=== PATIENT | female | born 1950 | race Caucasian/White ===

== ENCOUNTER → 2016-03-19 | Day surgery (SDC) | payer BC, OTHER ==
[2016-03-14 14:46] LABS: BASO % 0.8 %; BASO ABS # 0.06 K/uL (0-0.2); COMPLETE YES; EOS % 2.7 %; HEMATOCRIT 40.2 % (37-47); IG% 0.1 %; LYMPH % 26.9 %; LYMPH ABS # 1.91 K/uL (1.2-3.4); MEAN CELL VOLUME 85.2 fL (80-100); MEAN CORPUSCULAR HEMOGLOBIN 28.6 pg (25-34); MEAN CORPUSCULAR HGB CONC 33.6 g/dl (32-36); MEAN PLATELET VOLUME 9.9 fL (7.4-10.4); NEUT % 59.5 %; PLATELET COUNT 289 K/uL (130-400); RED BLOOD COUNT 4.72 M/uL (4.2-5.4)
[2016-03-14 14:53] LABS: INR 0.9 (0.9-1.1)
[2016-03-16 12:40] VITALS: Ht 162.6 cm; Wt 69.5 kg
[~2016-03-19] VITALS: Ht 162.6 cm; Wt 69.5 kg
[~2016-03-19] MED LIST: ASCA500 PO; ASPI81TA28 PO; ATOR-22 PO; ATROPINE SULFATE 0.1 MG/ML 5ML SYR IV PRN; BIOT1CAP8 PO; BUPIVACAINE/EPINEPHRINE 0.5% MPF 1:200,000 30 ML VIAL ONE; CHOL100010 PO; CLINDAMYCIN PHOS 150 MG/ML 2 ML VIAL IV SCH; DEXAMETHASONE SOD INJ 4 MG/ML VIAL ONE; EpHEDrine SULFATE INJ 50 MG/ML AMP IV PRN; EpINEphrine INJ 1MG/ML AMP 1 MG/ML AMP ONE; FENTANYL CITRATE INJ 50 MCG/1 ML 2 ML VIAL ONE; LACTATED RINGER'S 1000ML 1,000 ML IV SCH; LIDOCAINE HCL 1% 20 ML VIAL ONE; LIDOCAINE HCL 2% 2 ML VIAL (20MG/ML) ONE; MIDAZOLAM HCL 1 MG/ML 2ML VIAL ONE; MULT-506 PO; MoRPHine SULFATE 2 MG/ML CARP IV PRN; MoRPHine SULFATE 4 MG/ML 1 ML CARP\\VIAL IV PRN; ONDANSETRON INJ 2 MG/ML 2 ML VIAL IV PRN; ONDANSETRON INJ 2 MG/ML 2 ML VIAL ONE; OXYCODONE/ACETAMINOPHEN 5-325 TAB PO PRN; PROPOFOL IV EMULSION 10 MG/ML 20 ML VIAL IV ONE
--- NOTE | 2016-03-19 07:03 | History & Physical Bridge - SC ---
H&P Re-Evaluation Bridge Note: I have examined the patient, reviewed the History & Physical and in the interval since the performance of the History & Physical I have noted the following changes of clinical significance: No changes noted
--- NOTE | 2016-03-19 08:03 | Discharge Instructions-SurgCtr ---
Discharge Instructions Visit Reason for Visit: Left Knee Meniscus Tear, Chondromalacia;Pre-Op Discharge Discharge Diagnosis / Problem: S/P L knee arthroscopy, partial medial meniscectomy, chondroplasty Discharge Goals Goal(s): Decrease discomfort, Improve function, Increase independence Medications Stopped Medications Name(s): stopped baby asa. last dose on 03/12 Activity Recommendations Activity Limitations: resume your previous activity Exercise/Sports Limitations: gradually increase as tolerated May Resume Sexual Activity: when tolerated Shower/Bathe: may shower/bathe in 3 days Driving or Machine Use: Not while on narcotics, should be walking normally without a limp Anesthesia . Post Anesthesia Instructions: If you have had General Anesthesia or IV Sedation: * Do not drive today. * Resume driving when surgeon permits. * Do not make important decisions or sign legal documents today. * Call surgeon for: 1. Temperature elevations greater than 101 degrees F. 2. Uncontrollable pain. 3. Excessive bleeding. 4. Persistent nausea and vomiting. 5. Medication intolerance (nausea, vomiting or rash). * For nausea and vomiting use only clear liquids such as: tea, soda, bouillon until nausea subsides, then gradually increase diet as tolerated. * If you have any concerns or questions, call your surgeon's office. If physician is unavailable and it is an emergency, call 911 or go to the nearest emergency room. . Instructions / Follow-Up Instructions / Follow-Up Dr. Santos in 10-15 days. PT in 2-3 days. Diet Recommendations Home Diet: resume previous diet Procedures Procedures Performed: Left Knee Arthroscopic Partial Medial Menisctomy,ExtensiveDebridement, Chondroplasty,Medial Plica Excision,Exam Under Anesthesia Pending Studies Studies pending at discharge: no Medical Emergencies . Who to Call and When: Medical Emergencies: If at any time you feel your situation is an emergency, please call 911 immediately. . Non-Emergent Contact Non-Emergency issues call your: Surgeon Call Non-Emergent contact if: temperature is above 101.5, your pain is not controlled, wound has increased drainage, wound has increased redness . . "Provider Documentation" section prepared by Madhu Santos.
--- NOTE | 2016-03-19 08:05 | [facility] Post Operative Brief Note ---
Immediate Operative Summary Operative Date Mar 19, 2016. Pre-Operative Diagnosis left knee meniscus tear/chondromalacia Post-Operative Diagnosis same synovitis,plica Procedure(s) Performed 1) Left Knee Arthroscopic Extensive Debridement, with Medial Plica Excision. 2) Chondroplasty MFC, Partial Medial Menisctomy. 3) Exam Under Anesthesia. Surgeon Dr Santos Auditing Control Clerk Surgeon(s) wen bryan PA-C Estimated Blood Loss 3ml Findings As above Fluids (cc crystalloids) 800 Specimens 0 Drains n/a Anesthesia LMA Complication(s) None Disposition Recovery Room / PACU (Stable)
--- NOTE | 2016-03-19 08:06 | [facility] Operative Report ---
Operative Report Operative Date Mar 19, 2016. Pre-Operative Diagnosis left knee meniscus tear/chondromalacia Post-Operative Diagnosis same synovitis,plica Procedure(s) Performed 1) Left Knee Arthroscopic Extensive Debridement, with Medial Plica Excision. 2) Chondroplasty MFC, Partial Medial Menisctomy. 3) Exam Under Anesthesia. Surgeon Dr Santos Hardboard Coating Machine Operator Surgeon(s) wen bryan PA-C (No fellow avail) Estimated Blood Loss 3ml Findings The Left knee was examined under anesthesia. Range of motion was 0-135. Ligamentous examination exhibited: stable Batool, posterior drawer, varus and valgus stress at 0 & 30 degrees. ARTHROSCOPIC FINDINGS: There was significant synovitis in the suprapatellar pouch and a medial plicae. 1) PATELLOFEMORAL JOINT: The articular cartilage of the Patella and Trochlea were intact. 2) GUTTERS: No loose bodies. 3) MEDIAL COMPARTMENT: The articular cartilage of the femur had Outerbridge Type II changes at 80 degrees of flexion with small flaps of articular cartilage near the notch and Tibia was intact. The medial meniscus had a degenerative complex tear involving the apex and undersurface. 4) ACL/PCL: They were both visualized and probed to be intact. 5) LATERAL COMPARTMENT: The lateral compartment was then entered in a figure-of- four position. The femoral articular cartilage was normal. The tibial articular cartilage had some diffuse softening fibulation. The lateral meniscus was normal. Fluids (cc crystalloids) 800 Specimens 0 Drains n/a Anesthesia LMA Complication(s) None Disposition Recovery Room / PACU (Stable) Implants n/a Indications This is a 65-year-old female who has clinical and MRI findings consistent with meniscus tear and chondromalacia. I recommended that a left knee arthroscopy be performed with meniscus repair vs debridement, possible chondroplasty versus microfracture. The patient understands the risks of surgery, which include but not limited to: bleeding, infection, re-operation, damage to nerves and arteries , continued knee pain, progression of OA, DVT, and a 2-5% risk of becoming worse after surgery. The patient understands all of these instructions and explanations, all of his questions have been satisfactorily addressed and the patient has elected to proceed. Informed consent was signed. Description of Procedure The patient was taken to the Operating Room and placed in the supine position after general anesthetic was administered. My initials and a multidisciplinary time-out were used to identify the left leg as the correct operative limb. Prior to the incision, 600 milligrams of intravenous Clindamycin was given. The left knee was then injected with 20cc of a 50:50 mix of 1% Lidocaine plain and 0.5% Bupivacaine with epinephrine in a sterile fashion using the superolateral portal. The left leg was then prepped and draped in a standard sterile fashion. The anterolateral, anteromedial, and superolateral portals were injected with the 50:50 mixture noted above, for a total of 2 cc, in the standard fashion. An anterolateral arthroscopic portal was established with an 11-blade. Next, the arthroscope was introduced into the knee. A diagnostic arthroscopy commenced anteromedial portal was established under direct visualization using a spinal needle followed by an 11 blade in the standard fashion. The above findings were observed during the diagnostic arthroscopy. The synovitis and anterior fat pad were debrided as they were encounter with mechanical shaver and Coolcut. The medial plicae was excised with a mechanical shaver. The articular cartilage damage was debrided back to stable margins as they were encountered with mechanical shaver. The medial meniscus tear was evaluated and found to be irreparable and was debrided back to stable margin with hand punches, and mechanical shaver. The knee was copiously irrigated. The arthroscopic instruments were then removed. The portals were closed with 3-0 Prolene in a standard fashion. The wound was dressed with Xeroform gauze, sterile gauze, ABDs, sterile Webril, and a foot to thigh Ortiz bandage. The patient was then transferred to the Recovery Room in stable condition. The sponge and needle counts were correct. Post-op Instructions: The patient will be WBAT. The patient may remove the operative dressing on Post -Op Day #2 and apply Band-Aids to the wounds. The patient may shower in 72 hours and is to wear the QUOC for 2 weeks on the operative limb. The patient is to use the pain medicine as needed and take the ASA for 2 weeks. The patient was also given a handout for home quad strengthening and seated self-assisted ROM exercises, which they may begin tomorrow. The patient was given a prescription for PT and is scheduled for an appointment later this week. The patient is to follow up with me in 10-15 days. I attest to the content of the Intraoperative Record and any orders documented therein. Any exceptions are noted below.
--- NOTE | 2016-03-19 08:11 | [facility] Operative Report ---
Operative Report Operative Date Mar 19, 2016. Pre-Operative Diagnosis left knee meniscus tear/chondromalacia Post-Operative Diagnosis same synovitis,plica Procedure(s) Performed 1) Left Knee Arthroscopic Extensive Debridement, with Medial Plica Excision. 2) Chondroplasty MFC, Partial Medial Menisctomy. 3) Exam Under Anesthesia. Surgeon Dr Santos Tower Dragline Operator Surgeon(s) wen bryan PA-C Estimated Blood Loss 3ml Findings SAME Fluids (cc crystalloids) 800 Specimens 0 Drains none Anesthesia general Complication(s) None Disposition Recovery Room / PACU Implants none Indications continued left knee pain, failed conservative management, surgery recommended, consents signed Description of Procedure taken to the OR, prepped and draped, I was present the entire case, please see Dr. Santos's op note for further detail I attest to the content of the Intraoperative Record and any orders documented therein. Any exceptions are noted below.
[2016-03-19] MEDS: FENTANYL CITRATE INJ 50 MCG/1 ML 2 ML VIAL IV PRN ×2 (08:21→08:26)
[2016-03-19 08:55] VITALS: TEMP 36.5
--- NOTE | 2016-03-19 09:02 | Anesthesia Progress Nt - [facility] ---
Anesthesia Post Op Note Date & Time Mar 19, 2016 at 09:02 Vital Signs Pain Intensity: 3 Vital Signs Past 12 Hours Date Time Temp Pulse Resp B/P Pulse Ox O2 Delivery O2 Flow Rate FiO2 03/19/16 08:45 36.6 71 16 118/65 99 Room Air 03/19/16 08:44 118/65 03/19/16 08:43 74 14 03/19/16 08:43 74 14 96 03/19/16 08:38 72 13 03/19/16 08:38 72 13 111/81 97 03/19/16 08:37 74 15 03/19/16 08:37 74 15 97 03/19/16 08:34 121/77 03/19/16 08:32 73 13 03/19/16 08:32 75 13 100 03/19/16 08:28 131/83 03/19/16 08:27 73 11 100 03/19/16 08:27 74 11 03/19/16 08:24 127/79 03/19/16 08:22 72 13 03/19/16 08:22 71 13 100 03/19/16 08:19 131/79 03/19/16 08:17 78 19 100 03/19/16 08:17 78 19 03/19/16 08:13 129/84 03/19/16 08:12 37.1 81 16 136/88 99 Diffusion Mask 6 03/19/16 08:12 77 13 03/19/16 08:12 76 13 99 03/19/16 06:33 36.8 66 18 134/76 97 Room Air Notes Mental Status: alert / awake / arousable, participated in evaluation Pt Amnestic to Procedure: Yes Nausea / Vomiting: adequately controlled Pain: adequately controlled Airway Patency, RR, SpO2: stable & adequate BP & HR: stable & adequate Hydration State: stable & adequate Anesthetic Complications: no major complications apparent
[2016-03-19 09:36] VITALS: BP 122/76; O2SAT 98
--- NOTE | 2016-03-20 15:08 | Progress Note ---
Progress Note I followed up with a phone call to see how she was doing today and she said her lip was still swollen. She has not applied ice and I urged her to do so three times a day. She said that she would. She also stated the the area was numb. I reassured her that the numbness would resolve as well as the swelling, but that the swelling would go away a lot faster if she uses ice. The woman was very pleasant to speak with and did not seem angry.
== END | disposition home or self-care (01) ==
LOC: X.SURG 06:20
PROVIDERS: ATTEND Orthopaedic Surgery Sports Medicine
DX: M23.204 Derangement of unspecified medial meniscus due to old tear or injury, left knee (principal); M94.262 Chondromalacia, left knee; M65.862 Other synovitis and tenosynovitis, left lower leg; M67.52 Plica syndrome, left knee; E78.5 Hyperlipidemia, unspecified; Z88.1 Allergy status to other antibiotic agents; Z88.0 Allergy status to penicillin; Z98.890 Other specified postprocedural states; Z98.49 Cataract extraction status, unspecified eye; Z79.82 Long term (current) use of aspirin; Z68.26 Body mass index [BMI] 26.0-26.9, adult

== ENCOUNTER → 2016-03-21 | Outpatient (CLI) | payer BC ==
[~2016-03-21] MED LIST changes: -ATROPINE SULFATE 0.1 MG/ML 5ML SYR IV PRN; -BUPIVACAINE/EPINEPHRINE 0.5% MPF 1:200,000 30 ML VIAL ONE; -CLINDAMYCIN PHOS 150 MG/ML 2 ML VIAL IV SCH; -DEXAMETHASONE SOD INJ 4 MG/ML VIAL ONE; -EpHEDrine SULFATE INJ 50 MG/ML AMP IV PRN; -EpINEphrine INJ 1MG/ML AMP 1 MG/ML AMP ONE; -FENTANYL CITRATE INJ 50 MCG/1 ML 2 ML VIAL ONE; -LACTATED RINGER'S 1000ML 1,000 ML IV SCH; -LIDOCAINE HCL 1% 20 ML VIAL ONE; -LIDOCAINE HCL 2% 2 ML VIAL (20MG/ML) ONE; -MIDAZOLAM HCL 1 MG/ML 2ML VIAL ONE; -MoRPHine SULFATE 2 MG/ML CARP IV PRN; -MoRPHine SULFATE 4 MG/ML 1 ML CARP\\VIAL IV PRN; -ONDANSETRON INJ 2 MG/ML 2 ML VIAL IV PRN; -ONDANSETRON INJ 2 MG/ML 2 ML VIAL ONE; -OXYCODONE/ACETAMINOPHEN 5-325 TAB PO PRN; -PROPOFOL IV EMULSION 10 MG/ML 20 ML VIAL IV ONE
[2016-03-21 11:14] LABS: URINE APPEARANCE CLEAR (CLEAR); URINE BILIRUBIN NEG (NEG); URINE COLOR YELLOW; URINE EPITHELIAL CELL AUTO 0-5 /lpf (0-5); URINE NITRITE NEG (NEG); URINE PH 8.5 (4.5-7.5); URINE SPECIFIC GRAVITY 1.002 (1.000-1.030); UROBILINOGEN NEG (NEG)
[2016-03-21 11:18] LABS: MANUAL MICROSCOPIC REQUIRED? NO; REVIEW REQ? NO
[2016-03-21 11:23] LABS: ESTIMATED AVERAGE GLUCOSE 126 mg/dl; HA1C FLAG Normal (Normal)
[2016-03-21 11:25] LABS: AST/SGOT 17 U/L (15-37); BLOOD UREA NITROGEN 11 mg/dl (7-18); BUN/CREATININE RATIO 17.6 (10-20); CALCIUM 9.3 mg/dl (8.5-10.1); CARBON DIOXIDE 30 mmol/L (21-32); CHLORIDE 107 mmol/L (98-107); CREATININE 0.63 mg/dl (0.60-1.20); GLUCOSE 99 mg/dl (70-99); POTASSIUM 4.1 mmol/L (3.5-5.1); SODIUM 144 mmol/L (136-145)
[2016-03-21 11:35] LABS: ALT/SGPT 35 U/L (12-78); CHOLESTEROL 189 mg/dl (0-200); CHOLESTEROL/HDL RATIO 2.1; HDL CHOLESTEROL 91 mg/dl; LDL CHOLESTEROL CALCULATED 69 mg/dl; THYROID STIMULATING HORMONE 0.572 uIu/ml (0.300-4.500); TRIGLYCERIDES 143 mg/dl (0-150); VERY LOW DENSITY LIPOPROT CALC 29 mg/dl
== END | disposition home or self-care (01) ==
LOC: C.LAB1850 09:59
PROVIDERS: ATTEND Internal Medicine
DX: M19.90 Unspecified osteoarthritis, unspecified site (principal)

== ENCOUNTER → 2016-06-04 | Outpatient (CLI) | payer BC ==
--- NOTE | 2016-06-04 13:27 | DIAGNOSTIC IMAGING REPORT ---
SINUSES MIN 3 VIEWS ROUTINE CLINICAL HISTORY: J32.9 Chronic [id number] sinusitis COMPARISON STUDY: None FINDINGS: All major sinuses are clear. No significant mucosal thickening. IMPRESSION: Normal study Electronically signed by: Matthew Rossi M.D. 06/04/2016 1:26 PM Dictated Date/Time: 06/04/2016 1:25 PM
== END | disposition home or self-care (01) ==
LOC: C.RAD1850 12:58
PROVIDERS: ATTEND Internal Medicine
DX: J32.9 Chronic sinusitis, unspecified (principal)

== ENCOUNTER → 2016-08-31 | Outpatient (CLI) | payer BC | END | disposition home or self-care (01) | LOC: C.PAPS 14:22 | PROVIDERS: ATTEND Obstetrics & Gynecology | DX: Z12.4 Encounter for screening for malignant neoplasm of cervix (principal) ==

== ENCOUNTER → 2016-08-31 | Outpatient (CLI) | payer BC ==
--- NOTE | 2016-08-31 16:38 | MAMMOGRAPHY REPORT ---
BILATERAL DIGITAL SCREENING MAMMOGRAM TOMOSYNTHESIS WITH CAD: 08/31/2016 CLINICAL HISTORY: Routine screening. The patient reported to the technologist that she had some righ t upper outer quadrant tenderness last week. TECHNIQUE: Breast tomosynthesis in addition to standard 2D mammography was performed. Current study was also evaluated with a Computer Aided Detection (CAD) system. COMPARISON: Comparison is made to exams dated: 08/30/2015 mammogram, 08/27/2014 mammogram, 08/26/2013 m ammogram, 08/25/2012 mammogram, 08/24/2011 mammogram, and 08/21/2010 mammogram - [facility] ter. BREAST COMPOSITION: The tissue of both breasts is heterogeneously dense, which may obscure small mas ses. FINDINGS: No suspicious masses, calcifications, or areas of architectural distortion are noted in ei ther breast. There has been no significant interval change compared to prior exams. IMPRESSION: ACR BI-RADS CATEGORY 1: NEGATIVE There is no mammographic evidence of malignancy. A 1 year screening mammogram is recommended. Also r ecommend clinical follow-up for right breast tenderness. The patient will receive written notificati on of the results. Approximately 10% of breast cancers are not detected with mammography. A negative mammographic report should not delay biopsy if a clinically suggestive mass is present. Kerry Drummond M.D. /:08/31/2016 15:30:43 Bomb Loader: Karoline SAGE(Ghassan)(M), [facility] letter sent: Normal 1/2 BI-RADS Code: ACR BI-RADS Category 1: Negative
== END | disposition home or self-care (01) ==
LOC: C.MAMM 10:14
PROVIDERS: ATTEND Obstetrics & Gynecology
DX: Z12.31 Encounter for screening mammogram for malignant neoplasm of breast (principal); Z12.4 Encounter for screening for malignant neoplasm of cervix

== ENCOUNTER → 2016-09-19 | Outpatient (CLI) | payer BC ==
[2016-09-19 14:39] LABS: BASO % 0.5 %; BASO ABS # 0.03 K/uL (0-0.2); COMPLETE YES; EOS % 3.4 %; HEMATOCRIT 42.8 % (37-47); IG% 0.2 %; LYMPH % 30.9 %; MEAN CELL VOLUME 85.1 fL (80-100); MEAN CORPUSCULAR HEMOGLOBIN 27.2 pg (25-34); MEAN PLATELET VOLUME 9.7 fL (7.4-10.4); MONO % 9.4 %; NEUT % 55.6 %; PLATELET COUNT 308 K/uL (130-400); RED BLOOD COUNT 5.03 M/uL (4.2-5.4); WHITE BLOOD COUNT 6.15 K/uL (4.8-10.8)
[2016-09-19 14:49] LABS: ALT/SGPT 33 U/L (12-78); AST/SGOT 19 U/L (15-37); BLOOD UREA NITROGEN 15 mg/dl (7-18); BUN/CREATININE RATIO 21.1 (10-20); CALCIUM 9.3 mg/dl (8.5-10.1); CARBON DIOXIDE 28 mmol/L (21-32); CHLORIDE 109 mmol/L (98-107); CREATININE 0.69 mg/dl (0.60-1.20); ESTIMATED AVERAGE GLUCOSE 131 mg/dl; GLUCOSE 98 mg/dl (70-99); HA1C FLAG Normal (Normal); POTASSIUM 3.9 mmol/L (3.5-5.1); SODIUM 141 mmol/L (136-145)
[2016-09-19 15:02] LABS: CHOLESTEROL 192 mg/dl (0-200); CHOLESTEROL/HDL RATIO 2.3; HDL CHOLESTEROL 84 mg/dl; LDL CHOLESTEROL CALCULATED 89 mg/dl; TRIGLYCERIDES 93 mg/dl (0-150); VERY LOW DENSITY LIPOPROT CALC 19 mg/dl
--- NOTE | 2016-09-25 10:01 | CODING QUERY MEDICAL NECESSITY ---
CQSUPPORTING DIAGNOSIS NEEDED A supporting diagnosis is required for the test/procedure performed on this patient in order for us to be reimbursed by the patient's insurance. Please provide a supporting diagnosis for the following test/procedure listed below next to the test name along with your signature. *If there is no additional diagnosis for this patient that would support the following test/procedure please document that below next to the test/procedure. Test(s)/Procedure(s) that require a supporting diagnosis: DOS 09/19/16 VITAMIN D TEST GLYCATED HEMOGLOBIN TEST Provider Signature: Date: Thank you Neetu Mahan [facility] Information Management Once completed, please kindly fax back to [phone] For questions please call [phone]
== END | disposition home or self-care (01) ==
LOC: C.LAB1850 12:34
PROVIDERS: ATTEND Internal Medicine
DX: E78.00 Pure hypercholesterolemia, unspecified (principal); Z13.21 Encounter for screening for nutritional disorder; R73.9 Hyperglycemia, unspecified

== ENCOUNTER → 2016-10-22 | Outpatient (CLI) | payer BC | END | disposition home or self-care (01) | LOC: C.MAMM 11:01 | PROVIDERS: ATTEND Internal Medicine | DX: M81.0 Age-related osteoporosis without current pathological fracture (principal) ==

== ENCOUNTER → 2017-03-14 | Outpatient (CLI) | payer BC | END | disposition home or self-care (01) | LOC: C.RDSM 11:03 | PROVIDERS: ATTEND Orthopaedic Surgery Sports Medicine | DX: M25.561 Pain in right knee (principal) ==

== ENCOUNTER → 2017-03-21 | Outpatient (CLI) | payer BC ==
[2017-03-21 14:12] LABS: BASO % 0.5 %; BASO ABS # 0.03 K/uL (0-0.2); EOS % 1.5 %; HEMATOCRIT 37.6 % (37-47); HEMOGLOBIN 12.5 g/dL (12.0-16.0); IG# 0.01 K/uL (0.00-0.02); LYMPH % 19.3 %; LYMPH ABS # 1.26 K/uL (1.2-3.4); MEAN CELL VOLUME 86.4 fL (80-100); MEAN CORPUSCULAR HEMOGLOBIN 28.7 pg (25-34); MEAN CORPUSCULAR HGB CONC 33.2 g/dl (32-36); MEAN PLATELET VOLUME 9.8 fL (7.4-10.4); MONO % 15.2 %; MONO ABS # 0.99 K/uL (0.11-0.59); NEUT % 63.3 %; NEUT ABS # 4.14 K/uL (1.4-6.5); PLATELET COUNT 247 K/uL (130-400); RED CELL DISTRIBUTION WIDTH CV 13.7 % (11.5-14.5); RED CELL DISTRIBUTION WIDTH SD 43.9 fL (36.4-46.3); WHITE BLOOD COUNT 6.53 K/uL (4.8-10.8)
[2017-03-21 14:35] LABS: HEMOGLOBIN A1C 6.1 % (4.5-5.6)
[2017-03-21 17:41] LABS: ALT/SGPT 38 U/L (12-78); AST/SGOT 25 U/L (15-37); BLOOD UREA NITROGEN 10 mg/dl (7-18); CALCIUM 8.9 mg/dl (8.5-10.1); CARBON DIOXIDE 28 mmol/L (21-32); CHOLESTEROL 179 mg/dl (0-200); CREATININE 0.59 mg/dl (0.60-1.20); GLUCOSE 87 mg/dl (70-99); POTASSIUM 3.9 mmol/L (3.5-5.1); SODIUM 133 mmol/L (136-145)
[2017-03-21 17:47] LABS: LDL CHOLESTEROL CALCULATED 85 mg/dl
--- NOTE | 2017-03-26 11:35 | CODING QUERY MEDICAL NECESSITY ---
CQSUPPORTING DIAGNOSIS NEEDED A supporting diagnosis is required for the test/procedure performed on this patient in order for us to be reimbursed by the patient's insurance. Please provide a supporting diagnosis for the following test/procedure listed below next to the test name along with your signature. *If there is no additional diagnosis for this patient that would support the following test/procedure please document that below next to the test/procedure. Test(s)/Procedure(s) that require a supporting diagnosis: DOS 03/21/17 GLYCATED HEMOGLOBIN TEST Provider Signature: Date: Thank you Neetu Mahan Health Information Management Once completed, please kindly fax back to [phone] For questions please call [phone]
== END | disposition home or self-care (01) ==
LOC: C.LAB1850 13:03
PROVIDERS: ATTEND Internal Medicine
DX: E78.00 Pure hypercholesterolemia, unspecified (principal); R73.9 Hyperglycemia, unspecified

== ENCOUNTER → 2017-05-16 | Outpatient (CLI) | payer BC ==
--- NOTE | 2017-05-16 12:31 | DIAGNOSTIC IMAGING REPORT ---
CHEST 2 VIEWS ROUTINE CLINICAL HISTORY: CHEST PAIN dyspnea COMPARISON STUDY: No previous studies for comparison. FINDINGS: The bones soft tissues and hemidiaphragms are normal. The cardiomediastinal silhouette is normal. The lungs are clear. The pulmonary vasculature is normal. IMPRESSION: Negative chest. The above report was generated using voice recognition software. It may contain grammatical, syntax or spelling errors. Electronically signed by: Matthew Rossi M.D. 05/16/2017 12:29 PM Dictated Date/Time: 05/16/2017 12:29 PM
== END | disposition home or self-care (01) ==
LOC: C.RAD1850 12:13
PROVIDERS: ATTEND Physician Assistant Medical
DX: R07.9 Chest pain, unspecified (principal)

== ENCOUNTER → 2017-05-16 | Outpatient (CLI) | payer BC ==
--- NOTE | 2017-05-16 15:19 | MAMMOGRAPHY REPORT ---
UNILATERAL RIGHT DIGITAL DIAGNOSTIC MAMMOGRAM TOMOSYNTHESIS WITH CAD AND TARGETED RIGHT ULTRASOUND: CLINICAL HISTORY: The patient reports intermittent right medial breast pain for some time. Over the last 2 months she had episodes in which the pain radiated to involve the whole breast. She denies an y palpable lumps or other complaints. TECHNIQUE: Breast tomosynthesis in addition to standard 2D mammography was performed. Current study was also evaluated with a Computer Aided Detection (CAD) system. Right CC and MLO 2-D and tomosynthe sis images were obtained. COMPARISON: Comparison is made to exams dated: 08/31/2016 mammogram, 08/30/2015 mammogram, 08/27/2014 m ammogram, 08/26/2013 mammogram, 08/25/2012 mammogram, and 08/24/2011 mammogram - [facility]. BREAST COMPOSITION: The tissue of the right breast is heterogeneously dense, which may obscure small masses. FINDINGS: A square marker diaz the site of pain reported by the patient in the right upper inner sha drant. There are no suspicious masses, calcifications, or areas of architectural distortion noted in the right breast mammographically. There has been no significant interval change compared to prior exams. Targeted ultrasound was performed of the area of pain pointed out by the patient, involving the right far medial breast in the parasternal region. Sonographically normal tissue is seen in this region, without evidence of a mass or other suspicious sonographic abnormality. IMPRESSION: ACR BI-RADS CATEGORY 2: BENIGN, TARGETED ULTRASOUND ACR BI-RADS CATEGORY 2: BENIGN No suspicious mammographic or sonographic abnormality to explain right breast pain. There is no mamm ographic or targeted sonographic evidence of malignancy. Recommend clinical follow-up for right farzaneh st pain, and recommend routine bilateral screening mammograms which are due August 2017. The patient has been verbally notified of the results. Approximately 10% of breast cancers are not detected with mammography. A negative mammographic report should not delay biopsy if a clinically suggestive mass is present. Kerry Drummond M.D. /:05/16/2017 08:38:37 Chief Information Security Officer: Candaec Alves, [facility] letter sent: Normal 1/2 BI-RADS Code: ACR BI-RADS Category 2: Benign Ultrasound BI-RADS: ACR BI-RADS Category 2: Benign
== END | disposition home or self-care (01) ==
LOC: C.MAMM 08:19
PROVIDERS: ATTEND Obstetrics & Gynecology
DX: R92.8 Other abnormal and inconclusive findings on diagnostic imaging of breast (principal); N64.4 Mastodynia

== ENCOUNTER 2022-09-20 07:56 | Observation (INO) ==
--- NOTE | 2022-08-16 14:06 | PAT Medication Instructions ---
Medication Instructions Date of Service August 16, 2022 Home Medications Medication Instructions Recorded diazepam 2 mg tablet 1 mg PO BID PRN anxiety #10 tabs 07/27/22 biotin 1 mg capsule 1 mg PO HS multivitamin 1 cap PO HS ascorbic acid (vitamin C) 500 mg tablet 1 gm PO HS cholecalciferol (vitamin D3) 25 mcg (1,000 unit) capsule (Vitamin D3) 2,000 units PO HS cyanocobalamin (vitamin B-12) 2,000 mcg tablet 2,000 mcg PO HS cyclosporine 0.05 % eye drops in a dropperette (Restasis) 1 drp OPB BID famotidine 20 mg tablet (Pepcid) 20 mg PO DAILY PRN Acid Reflux doxycycline hyclate 100 mg capsule 100 mg PO BID PRN rosacea diazepam 2 mg tablet 1 mg PO BID PRN anxiety atorvastatin 20 mg tablet (Lipitor) 20 mg PO HS ibuprofen 200 mg tablet (Advil) 400 mg PO Q6H PRN Pain ASK your surgeon for instructions ibuprofen 200 mg tablet (Advil) 400 mg PO Q6H PRN Pain STOP taking 2 weeks before surgery (or as soon as possible if surgery is within 2 weeks) biotin 1 mg capsule 1 mg PO HS Take morning of surgery With a small sip of water, OTHERWISE NOTHING TO EAT OR DRINK AFTER MIDNIGHT: cyclosporine 0.05 % eye drops in a dropperette (Restasis) 1 drp OPB BID famotidine 20 mg tablet (Pepcid) 20 mg PO DAILY PRN Acid Reflux (if needed) doxycycline hyclate 100 mg capsule 100 mg PO BID PRN rosacea (if needed) diazepam 2 mg tablet 1 mg PO BID PRN anxiety (if needed) Take evening before surgery multivitamin 1 cap PO HS ascorbic acid (vitamin C) 500 mg tablet 1 gm PO HS cholecalciferol (vitamin D3) 25 mcg (1,000 unit) capsule (Vitamin D3) 2,000 un its PO HS cyanocobalamin (vitamin B-12) 2,000 mcg tablet 2,000 mcg PO HS cyclosporine 0.05 % eye drops in a dropperette (Restasis) 1 drp OPB BID famotidine 20 mg tablet (Pepcid) 20 mg PO DAILY PRN Acid Reflux (if needed) doxycycline hyclate 100 mg capsule 100 mg PO BID PRN rosacea (if needed) diazepam 2 mg tablet 1 mg PO BID PRN anxiety (if needed) atorvastatin 20 mg tablet (Lipitor) 20 mg PO HS Other Notes If you have any questions please call us at [phone] or [phone] or [phone] or [phone]
--- NOTE | 2022-08-24 14:38 | Anesthesiology Consultation ---
Date of Service August 24, 2022 Assessment & Plan (1) Encounter for pre-operative examination: - COVID screening: Per assessment on 08/24: No known COVID-19 positive contacts or current COVID-19 related symptoms. Travel screen negative. Patient vaccinated. At surgeon discretion if preop Covid testing being done. - Outpatient joint assessment: Pt currently scheduled for inpatient pathway. If surgeon requests review for outpatient joint pathway, patient is an acceptable candidate for outpatient joint program from anesthesia standpoint pending surgeon's office assessment that patient is motivated, has good support and completes Same Day Joint Program preop requirements. - S/P Colonoscopy (05/16/22): MAC at [facility] - Patient acceptable risk pending surgeon-ordered PCP preop evaluation ([facility], appt 08/27). Chart Review Chart Review: Patient seen in Pre Admission Testing Teaching & Discussion Pre-Anesthesia Teaching/Discussion Notes: Instructed NPO after midnight before surgery,except medications with 15 cc of water. Medication instructions provided according to the PAT guidelines. History Surgery Operation Date: 09/20/22 08:15 Proposed Procedures p Left Total Hip Arthroplasty - Haider Mahajan MD Height/Weight Height: 5 ft 3 in Weight: 75.7 kg Allergies Allergy/AdvReac Type Severity Reaction Status Date / Time erythromycin base Allergy Intermediate Hives Verified 08/23/22 15:48 omeprazole [From Prilosec] AdvReac Intermediate Vomiting Verified 08/16/22 11:21 penicillin G AdvReac Mild ? GI Verified 08/23/22 15:48 symptoms Medications Home Medications Medication Instructions Recorded Confirmed Last Taken biotin 1 mg capsule 1 mg PO HS 06/09/18 08/16/22 05/14/22 multivitamin 1 cap PO HS 06/09/18 08/16/22 05/14/22 ascorbic acid (vitamin C) 500 mg 1 gm PO HS 01/05/19 08/16/22 05/14/22 tablet cholecalciferol (vitamin D3) 25 2,000 units PO HS 09/23/19 08/16/22 05/14/22 mcg (1,000 unit) capsule (Vitamin D3) cyanocobalamin (vitamin B-12) 2,000 mcg PO HS 09/23/19 08/16/22 05/14/22 2,000 mcg tablet cyclosporine 0.05 % eye drops in a 1 drp OPB BID 09/24/19 08/16/22 05/16/22 dropperette (Restasis) famotidine 20 mg tablet (Pepcid) 20 mg PO DAILY PRN Acid Reflux 02/28/22 08/16/22 Unknown doxycycline hyclate 100 mg capsule 100 mg PO BID PRN rosacea 05/09/22 08/16/22 Unknown diazepam 2 mg tablet 1 mg PO BID PRN anxiety #10 tabs 07/27/22 08/16/22 Unknown atorvastatin 20 mg tablet (Lipitor) 20 mg PO HS 08/16/22 08/16/22 Unknown ibuprofen 200 mg tablet (Advil) 400 mg PO Q6H PRN Pain 08/16/22 08/16/22 Unknown Past Medical History Medical History Anaplasmosis Chronic low back pain without sciatica Generalized anxiety disorder GERD without esophagitis History of basal cell cancer Hypercholesterolemia IBS (irritable bowel syndrome) Osteoporosis Prediabetes Rosacea Exercise / Class Metabolic Activity II 4-5 Yardwork/Stairs/Walk up hill (one FS (no CP, no SOB)) Past Family History Family History Mother Arthritis Father Arthritis Diabetes Prostate cancer Brother FH: CABG (coronary artery bypass surgery) Coronary heart disease Diabetes Prostate cancer Vasomotor rhinitis Other Myocardial infarction Denies family history of Ovarian cancer Breast cancer Colorectal cancer Past Surgical History Surgical History History of arthroscopy History of cataract surgery History of colonoscopy History of dilatation and curettage History of esophagogastroduodenoscopy (EGD) History of laparoscopy History of tooth extraction Status post epidural steroid injection Past Anesthesia History No Hx of Anesthesia Complications and No Family Hx of Anesthesia Complications History of PONV No Hx of PONV and Hx of Motion Sickness Social History Smoking Status: Never smoker Do You Dip or Chew Tobacco: No Hx Alcohol Use: Yes Alcohol type: wine alcohol intake frequency: a few times a month Hx Substance Use: No substance use type: does not use Review of Systems Non-allergic rhinitus- occasional post-nasal drip/cough, unchanged. Patient denies chest pain, shortness of breath, dyspnea on exertion, fever, chills, wheezing, palpitations. Physical Exam Vital Signs VITALS BP 137/72 P 75 TEMP 98.6 SP02 99%RA RESP 16 PHYSICAL Full cervical extension range of motion. Full TMJ range of motion. TMD 3 finger breaths Mallampati Score 1 Dentition: intact, right lower side implant Lungs: clear throughout to auscultation Cardiac: regular rate and rhythm, no murmurs noted Spine: normal Carotid arteries: negative bruit Extremities: no LE edema Short neck Lab Results Anesthesia Preop Results Results Anesthesia Widget: WBC 7.99 K/ul (4.8-10.8) 08/24/22 Hgb 13.3 g/dl (12.0-16.0) 08/24/22 Hct 40.0 % (37.0-47.0) 08/24/22 Plt 315 K/uL (130-400) 08/24/22 Na 139 mmol/L (136-145) 08/24/22 K 4.8 mmol/L (3.5-5.1) 08/24/22 Cl 104 mmol/L (98-107) 08/24/22 CO2 29 mmol/L (21-32) 08/24/22 BUN 9 mg/dl (6-23) 08/24/22 Creat 0.49 mg/dl (0.6-1.2) L 08/24/22 Glucose Level 100 mg/dl (70-99(Fasting)) H 08/24/22 PT 10.5 Seconds (9.0-12.0) 08/24/22 PTT 25.8 Seconds (21.0-31.0) 08/24/22 INR 1.0 (0.9-1.1) 08/24/22 Urine Color Yellow 08/24/22 Urine Appearance Clear (Clear) 08/24/22 Urine pH 6.5 (4.5-7.5) 08/24/22 Urine Specific [place] 1.009 (1.000-1.030) 08/24/22 Urine Protein Negative (Negative) 08/24/22 Urine Glucose (UA) Negative (Negative) 08/24/22 Urine Ketones Negative (Negative) 08/24/22 Urine Blood Negative (Negative) 08/24/22 Urine Nitrite Negative (Negative) 08/24/22 Urine Bilirubin Negative (Negative) 08/24/22 Urine Urobilinogen Negative (Negative) 08/24/22 Urine Leukocyte Esterase Trace (Negative) H 08/24/22 Urine WBC (Auto) 1-5 /hpf (0-5) 08/24/22 Urine RBC (Auto) 0-4 /hpf (0-4) 08/24/22 Urine Hyaline Casts (Auto) 0 /lpf (0-5) 08/24/22 Urine Epithelial Cells (Auto) 5-10 /lpf (0-5) H 08/24/22 Urine Bacteria (Auto) Negative (Negative) 08/24/22 Blood Type A Positive 08/24/22 Antibody Screen NEGATIVE 08/24/22 Testing Electrocardiogram Date: 04/16/22 SR at 71bpm. "Normal ECG" COVID-19 Risk Screen Screening Information COVID-19 Screen Date: 08/24/22 Exposure 21 Days Family/Household +COVID Last 21 Days: No Exposure 10 Days Any COVID Exposure Last 10 Days: No Symptoms Last 10 Days Experienced COVID Sx Last 10 Days: No + COVID 0-90 Days COVID + in Last 0-90 Days: No
--- NOTE | 2022-08-27 09:04 | History & Physical Report ---
Date of Service August 27, 2022 Assessment & Plan (1) Osteoarthritis of left hip: Plan: PRE-OP Diagnosis: Left hip osteoarthritis Planned Procedure: Left total hip arthroplasty Plan: Patient is scheduled to undergo this procedure at the [facility] with a 23-hour observation admission with Dr. Mahajan on September. Risks and complications of the procedure such as: Infection, bleeding, pain, scarring, nerve blood vessel damage, weakness, wound problems, stiffness, incomplete relief of symptoms, hardware failure, hardware loosening, wear, fracture, tendon or ligament injury, dislocation, leg length inequality, blood clots, Embolism, heart attack, stroke and were explained to the patient at her visit today. Informed consent to perform the procedure was obtained. Patient also understands risks of proceeding with surgical intervention during the COVID-19 pandemic. Currently she is asymptomatic and has not been in contact with anyone positive for the virus recently. Patient has an appointment to meet with anesthesia later this afternoon and while there will obtain CBC with differential, complete metabolic panel, PT/INR, blood type and screen, urinalysis, urine culture and sensitivity, EKG, and a nasal culture for MRSA. Patient will also need preoperative medical clearance from their primary care provider Zelda Cedeño PA-C. Patient states that she plans on doing in-home physical therapy for the first 1 to 2 weeks postoperatively with [facility]. Patient states that she will most likely elect to do outpatient physical therapy at somewhere near her home. Patient will need a walker, raised toilet seat, shower chair and a hip kit. During today's visit we reviewed the total hip packet as well as precautions. We discussed discharge planning from the hospital. I provided paperwork to obtain a handicap placard for their vehicle. We discussed lectures offered by [facility] in regards to joint replacement surgery via Zoom. I advised the patient that upon discharge from hospital we will prescribe a narcotic pain medication and anti-inflammatory. Patient will also be on an 81 mg aspirin twice daily for blood clot prevention. Patient will be scheduled for 2-week postoperative follow-up visit with Raven Morel on October 03 at 1 PM. At that visit we will Provide the patient with an order for outpatient physical therapy and rehab protocol. Patient verbalizes understanding of all information provided during today's visit. She thanks for the care that she received. If she has questions or concerns that should arise prior to her surgery, she will contact clinic. This chart was completed utilizing [employer] voice recognition software. Grammatical errors, random word insertions, pronoun errors, and in complete sentences are an occasional consequence of the system. Any questions or concerns about the content, text, or information contained within the body of this dictation should be addressed directly to the physician for clarification. History of Present Illness Chief Complaint: Chief Complaint: Left hip pain Primary Care Provider: Kamran Lamb MD History of Present Illness (including history relevant to procedure): This 71-year-old female presents to the clinic today for her preoperative history and physical. Patient states that she has had persistent left hip pain localized to the groin area since receiving her second COVID vaccine about 2 years ago. Patient states that the pain is so debilitating that she is not able to walk her dog. She states that she has tried intra-articular hip corticosteroid injections, had a troches bursa injection ended therapy without any relief of her symptoms. She is electing to proceed with surgical intervention at this time. Review Of Systems: A 12 point review of systems is performed and is unremarkable except for those things stated in the HPI and past medical history. Past Medical History: Problems: Hallux rigidus, right foot Lumbar spinal stenosis Left lumbar radiculopathy Hip bursitis, left Sacroiliitis Intertrigo History of basal cell carcinoma Seborrheic keratoses Rash Osteoarthritis of left hip ROSACEA Rosacea Multiple nevi Changing skin lesion Brachioradial pruritus Notalgia paresthetica Contact dermatitis Right foot pain Actinic keratosis Digital mucous cyst S/P orthopedic surgery, follow-up exam Meniscus tear Left knee pain Closed fracture of 5th metacarpal Pruritus Milia Hx of skin malignancy Eczema Acute cystitis Weight monitoring BCC (basal cell carcinoma of skin) Hyperlipidemia Osteopenia Family history of skin cancer Procedure History Procedure Procedure Date Comments Procedure - laser tx on face Colonoscopy normal Shave biopsy and cauterization of skin 12/21/2020 - Shave with cautery - Left nose Shave biopsy and cauterization of skin 12/16/2019 Punch biopsy of skin 01/30/2018 Knee meniscus 03/19/2016 Shave biopsy of skin 11/04/2012 Cataracts, bilateral 08/29/2012 Knee meniscus 2004 Allergies and Sensitivities: penicillins(Stomach upset) erythromycin(Rash) Current Home Meds: (Last Updated 08/24 13:20) ascorbic acid (Vitamin C 500 mg oral tablet) 500 mg PO Daily atorvastatin (Lipitor 20 mg oral tablet) 20 mg PO Daily biotin (biotin 5 mg oral capsule) 1,000 mg PO Daily cholecalciferol (Vitamin D3 1000 intl units oral capsule) 1,000 Int_Unit PO Daily chondroitin-glucosamine (Cosamin DS 500 mg-400 mg oral tablet) 1 tab PO Daily clobetasol topical (clobetasol 0.05% topical cream) 1 appl topical bid To rash BID for 2 weeks cycloSPORINE ophthalmic (Restasis 0.05% ophthalmic emulsion) 180 each Responsible Provider: MARY LOU HERRERA 06/13 10:56 doxycycline (doxycycline monohydrate 100 mg oral tablet) 30 each, TAKE 1 TABLET BY MOUTH TWICE DAILY NEEDED FOR ROSACEA FLARES Responsible Provider: CELIA MEJIA 06/13 10:55 doxycycline (doxycycline hyclate 100 mg oral capsule) 10 each, TAKE 1 CAPSULE BY MOUTH TWICE DAILY FOR 5 DAYS Responsible Provider: KAMRAN LAMB 07/16 11:30 ivermectin topical (Soolantra 1% topical cream) To face daily multivitamin 1 tab PO Daily predniSONE (predniSONE 10 mg oral tablet) 60mg PO x 1 day, then 50mg PO x1 day, then 40mg PO x 1 day, then 30mg PO x1 day, then 20mg PO x 1 day, then 10mg PO x 1 day then stop tretinoin topical (tretinoin 0.025% topical cream) 1 appl topical qhs triamcinolone topical (triamcinolone 0.1% topical cream) 1 appl topical bid To itchy forearms BID as needed. valACYclovir (Valtrex 1 g oral tablet) 1 g PO q12h 2 grams once and repeat in 12 hours at onset of cold sore symptomos, then stop. Initial Wt: 08/24 75.6 kg 166 lb Allergies Allergy/AdvReac Type Severity Reaction Status Date / Time erythromycin base Allergy Intermediate Hives Verified 08/23/22 15:48 omeprazole [From Prilosec] AdvReac Intermediate Vomiting Verified 08/16/22 11:21 penicillin G AdvReac Mild ? GI Verified 08/23/22 15:48 symptoms Home Medications Medication Instructions Recorded Confirmed Type biotin 1 mg capsule 1 mg PO HS 06/09/18 08/16/22 History multivitamin 1 cap PO HS 06/09/18 08/16/22 History ascorbic acid (vitamin C) 500 mg 1 gm PO HS 01/05/19 08/16/22 History tablet cholecalciferol (vitamin D3) 25 2,000 units PO HS 09/23/19 08/16/22 History mcg (1,000 unit) capsule (Vitamin D3) cyanocobalamin (vitamin B-12) 2,000 mcg PO HS 09/23/19 08/16/22 History 2,000 mcg tablet cyclosporine 0.05 % eye drops in a 1 drp OPB BID 09/24/19 08/16/22 History dropperette (Restasis) famotidine 20 mg tablet (Pepcid) 20 mg PO DAILY PRN Acid Reflux 02/28/22 08/16/22 History doxycycline hyclate 100 mg capsule 100 mg PO BID PRN rosacea 05/09/22 08/16/22 History diazepam 2 mg tablet 1 mg PO BID PRN anxiety #10 tabs 07/27/22 08/16/22 Rx atorvastatin 20 mg tablet (Lipitor) 20 mg PO HS 08/16/22 08/16/22 History ibuprofen 200 mg tablet (Advil) 400 mg PO Q6H PRN Pain 08/16/22 08/16/22 History Past Med/Surg History Medical History 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 Chronic low back pain without sciatica Generalized anxiety disorder GERD without esophagitis History of basal cell cancer Hypercholesterolemia IBS (irritable bowel syndrome) Osteoporosis Prediabetes Per records, patient denies Rosacea Surgical History History of arthroscopy R/L meniscus repair History of cataract surgery R/L (+ subsequent "laser") History of colonoscopy Colonoscopy (05/16/22): MAC at [facility] History of dilatation and curettage History of esophagogastroduodenoscopy (EGD) History of laparoscopy History of tooth extraction x1 with dental implant Status post epidural steroid injection Family History Mother Arthritis Father Arthritis Diabetes Prostate cancer Brother FH: CABG (coronary artery bypass surgery) Coronary heart disease Diabetes Prostate cancer Vasomotor rhinitis Other Myocardial infarction Denies family history of Ovarian cancer Breast cancer Colorectal cancer Social History Smoking Status: Never smoker Second Hand Exposure: No; Do You Dip or Chew Tobacco: No; Hx Alcohol Use: Yes Alcohol type: wine Hx Substance Use: No Preferred Language: Tongan Communication Ability: Effective Visual Impairment: No Limitations Hearing Ability: Normal Rn Circulating Required: No Beliefs That Will Affect Care: None marital status: Current Living Situation: Spouse current occupational status: retired current occupation: used to have a [employer] company, [employer], then [employer] before retiring Feels Safe at Home: Yes Childhood Exposure to Second-Hand Smoke: Yes Diet: regular Dental Care, Regularly: Yes Physical Activity Frequency: Daily Physical Activity Frequency Comment: walking, over 60min a day Seatbelt Use: always Sunscreen Use: Yes Assistive Devices: Glasses Review of Systems All systems reviewed & are unremarkable except as noted in Subjective Physical Exam Physical Exam: Physical Exam: (relevant to the procedure, including heart and lung evaluation) General: Alert and oriented x3 with proper grooming and hygiene Eyes: Pupils are equal and reactive to light with accommodation. Extraocular meds are intact Throat: Posterior oropharynx is clear with absence of edema, erythema or exudate . Dentition is appropriate Cardiac: Regular rate and rhythm with no murmurs or gallops appreciated Lungs: Clear to auscultation throughout with no wheezing, rales or rhonchi Abdomen: Mildly obese, nondistended, nontender with NABS Extremities: Left hip; flexion is limited to 90 degrees, external rotation to 40 degrees and internal rotation to 5 degrees with referred pain to the groin. Scour and impingement tests are both positive. Straight leg raise test causes referred pain to the groin. Logroll test and Stinchfield tests are both negative. SON test is positive with referred pain as well. Patient is neurovascular intact in the left lower extremity and walks with a slight antalgic gait. Neuro: Cranial nerves II through XII are intact no motor or sensory deficit Skin: Normal in appearance with no open skin areas or discharge Results & Data Diagnostic Findings Studies (relevant to the procedure): X-rays done today, personally interpreted by me include AP pelvis, false profile view, and cross-table lateral of the left hip. These demonstrate coxa profunda type left hip with marginal osteophytes and joint space narrowing and central pattern osteoarthritis, graded as severe.
[~2022-09-20 07:56] MED LIST changes: +ACETAMINOPHEN 500 MG TAB PO SCH; -ASCA500 PO; -ASPI81TA28 PO; -ATOR-22 PO; -BIOT1CAP8 PO; -CHOL100010 PO; +CeleBREX 200 MG CAP PO SCH; +FAMOTIDINE 20 MG TAB PO SCH; +LR 500ML BOLUS, THEN 15ML/HR IV SCH; +LR 60ML/HR IV SCH; -MULT-506 PO; +ROPIVACAINE 0.5% 5 MG/ML 30 ML VIAL ONE; +ROPIVACAINE 0.5% HCL/PF 150 MG, BUPIVACAINE 0.75% MPF 20 ML, EPINEPHrine 0.15 MG, Ketor... INFIL SCH; +Scopolamine 1 MG TDSY TD SCH; +TRANEXAMIC ACID 1,000 MG **IV Intra-op IV SCH; +TRANEXAMIC ACID 1,000 MG **IV Pre-op IV SCH; +ceFAZolin 2000MG 2,000 MG/15 ML SYR IV SCH; +dexAMETHasone 4 MG TAB PO SCH; +traMADol HCL 50 MG TABLET PO SCH
[2022-09-20] MEDS ORDERED: MIDAZOLAM HCL 1 MG/ML 2ML VIAL ONE ×2 (08:45)
[2022-09-20] MEDS ORDERED: ATROPINE SULFATE 0.1 MG/ML 10ML SYR IV PRN (08:57)
[2022-09-20] MEDS ORDERED: ONDANSETRON INJ 2 MG/ML 2 ML VIAL IV PRN ×2 (08:57→12:04)
[2022-09-20] MEDS ORDERED: ePHEDrine sulfate 50 MG/ML AMP IV PRN (08:57)
[2022-09-20] MEDS ORDERED: fentaNYL citrate PF 100 MCG/2 ML VIAL IV PRN (08:57)
[2022-09-20] MEDS ORDERED: HYDROmorphone INJ 1 MG/ML SYRINGE IV PRN (08:57)
--- NOTE | 2022-09-20 09:58 | History & Physical Bridge Note ---
Date of Service September 20, 2022 History & Physical Bridge Note I have examined the patient, reviewed the History & Physical and in the interval since the performance of the History & Physical I have noted the following changes of clinical significance: Patient hit her left valdes on a solid object about 1 week ago. She's had a tennis ball diameter area of redness on her valdes since this trauma. No fevers/chills. The redness has not changed in size. No malaise. Does not appear infected, just bruised. I discussed this with the patient that I have a very low suspicion for infection, and therefore believe it's safe to proceed with surgery. She would like to proceed. Otherwise, no changes noted
[2022-09-20] MEDS ORDERED: ORTHO JOINT ANESTHETIC ONE (10:04)
[2022-09-20] MEDS ORDERED: PHENYLEPHRINE 100MCG/ML 5ML SYR ONE (10:56)
[2022-09-20] MEDS ORDERED: ONDANSETRON INJ 2 MG/ML 2 ML VIAL ONE (10:56)
[2022-09-20] MEDS ORDERED: LIDOCAINE 2% 2 ML VIAL/AMP(20MG/ML) INFIL ONE (10:56)
[2022-09-20] MEDS ORDERED: PROPOFOL IV EMULSION 10 MG/ML 20 ML VIAL IV ONE (10:56)
--- NOTE | 2022-09-20 11:57 | Operative Report ---
Post Operative Report Pre & Post Diagnosis Operation Date: 09/20/22 10:05 Pre-Op Diagnosis: Left Hip Osteoarthritis Post-Op Diagnosis: Left Hip Osteoarthritis I identified the patient and participated in the time-out.: Yes Procedure Operation Date: 09/20/22 10:05 Actual Procedures p Left Total Hip Arthroplasty--Uncemented(Left) - Haider Mahajan MD Surgeon Haider Mahajan MD Director Of Outpatient Services ADRIANE Barksdale PA-C. No resident or fellow was available to assist. Estimated Blood Loss 100 Findings Consistent with Post-Op Diagnosis Specimens Left femoral head Anesthesia Type Spinal MAC Complications none Disposition Disposition: Recovery Room Indications 72-year-old female with left hip arthritis refractory to conservative management. X-rays demonstrate joint space narrowing, subchondral sclerosis, and marginal osteophyte formation. I had a long discussion with her about the risks and benefits of surgery, alternatives to surgery, and expected outcomes. After reviewing all these she elected to proceed with surgery. All questions were answered. Informed consent was signed. Description of Procedure Patient was identified in the preoperative holding area where the surgical site, left hip, was marked. A spinal anesthetic was placed, then the patient was brought back to the main operating room, placed in the operating table and moved into the lateral decubitus position. Axillary roll was placed. All bony prominences were padded. Perioperative antibiotics and tranexamic acid 1 gram IV were administered. Operative extremity was prepped and draped in the normal sterile fashion. Prior to incision a multidisciplinary timeout was called. All in the room were in agreement. We began by making an incision for a posterior approach to the hip. We dissected down through subcutaneous tissues to the level of the fascia. The fascia was incised in line with the incision. Charnley bow was placed. Fatty tissue was reflected posteriorly off the back of the greater trochanter to expose the piriformis and short external rotators of the hip. The piriformis and short external rotators were dissected off the posterior aspect of the hip. A box cut was made in the capsule. Inferior hip capsule was released off the femur. The femoral head was dislocated. The femoral neck cut was made at our preoperative template. The acetabulum was then exposed. The labrum was sharply excised. Contents of the cotyloid fossa were removed with electrocautery. We then began reaming at a size 8 mm less than our preoperative template. We reamed up by [address] the way up to a size 52 mm cup. This gave us good bleeding cancellus bone circumferentially. The acetabulum was then irrigated out and dried. The real [place] Gription cup was then impacted down into position with 45 degrees of lateral opening and 25 degrees of anteversion. A single cancellous bone screw was placed up into the ilium. Excellent fixation was obtained. A trial liner for a 32 mm femoral head was then placed. Next we turned our attention to the femur. The lateral neck was removed with a box osteotome. Intramedullary guide was used followed by the lateralizing reamer. We then reamed up to a size 4 [place] stem. We then broached all the way up to a size 4. We began trialing with a standard offset neck and a +5 head. Hip was reduced. Leg lengths were symmetric. The hip was stable in extension and external rotation, and stable in the sleeper position. At 90 degrees of hip flexion the hip could be internally rotated 50 degrees before levering out of the cup. I was very happy with the stability exam. Therefore the hip was dislocated and the femoral trial was removed. The acetabulum was re-exposed, and the trial liner was removed. An Altrx polyethylene liner for a 32 mm femoral head was then impacted into the shell. The locking mechanism was checked to ensure that it had engaged which it had. The femur was re-exposed. The femoral canal was irrigated and dried. The real size 4 standard offset [place] femoral stem was opened up. This was impacted down into position. It sat at the same level as the femoral trial. Therefore the 32 mm ceramic femoral head with +5 mm offset was opened up and gently impacted down onto the trunnion. The hip was atraumatically reduced. Another 1 gram of IV tranexamic acid was started prior to closure. The wound was irrigated out with sterile Betadine solution. The periarticular injection cocktail was then placed. The short external rotators, piriformis, and posterior capsule were repaired through drill holes in the greater trochanter using #2 Vicryl. The fascia was run with a looped #1 PDS. The subcutaneous layer was closed with #1 PDS. The dermal layer was closed with 2-0 Vicryl. Zip line was used for the skin followed by a Silverlon dressing. A compressive dressing was then placed. The patient was then rolled supine. Leg lengths were rechecked and were symmetric. An abduction pillow was placed. Sedation was lifted and the patient was transferred to the recovery room in stable condition. Summary of implants: Depuy [place] Gription Acetabular Shell Sector Cup, 52 mm outer diameter [place] Cancellous bone screw, 6.5 x 40 mm [place] hole eliminator [place]st Altrx Polyethylene Acetabular Liner, Neutral, with a 32 mm inner diameter DePuy [place] Femoral stem with [place], 12/14 taper, size 4 standard offset 32 mm ceramic femoral head with +5 offset Postoperative course: Patient will be admitted overnight from the recovery room. Patient will be weightbearing as tolerated with posterior hip precautions. Aspirin for DVT prophylaxis I attest to the content of the Intraoperative Record and any orders documented therein. Any exceptions are noted below.
[2022-09-20] MEDS ORDERED: MAGNESIUM HYDROXIDE SUSP 30 ML UDC PO PRN (12:04)
[2022-09-20] MEDS ORDERED: diphenhydrAMINE 50 MG/ML VIAL IV PRN (12:04)
[2022-09-20] MEDS ORDERED: ALUMINUM/MAGNESIUM SUSP 30 ML UDC PO PRN (12:04)
[2022-09-20] MEDS ORDERED: bisacodyL 10 MG SUPP PR PRN (12:04)
[2022-09-20] MEDS ORDERED: HYDROmorphone INJ 0.5 MG/0.5 ML SYR IV PRN (12:04)
[2022-09-20] MEDS ORDERED: METOCLOPRAMIDE HCL INJ 5 MG/ML 2 ML VIAL IV PRN (12:04)
[2022-09-20] MEDS ORDERED: NALOXONE HCL 0.4 MG/1 ML VIAL/CARP IV PRN (12:04)
--- NOTE | 2022-09-20 12:04 | Operative Report ---
Post Operative Report Pre & Post Diagnosis Operation Date: 09/20/22 10:05 Pre-Op Diagnosis: Left Hip Osteoarthritis Post-Op Diagnosis: Left Hip Osteoarthritis I identified the patient and participated in the time-out.: Yes Procedure Operation Date: 09/20/22 10:05 Actual Procedures p Left Total Hip Arthroplasty--Uncemented(Left) - Haider Mahajan MD Surgeon Haider Mahajan MD Firearms Specialist ADRIANE Barksdale PA-C. No resident or fellow was available to assist. Estimated Blood Loss 100 Findings Consistent with Post-Op Diagnosis Specimens femoral head Description of Procedure I was present during the entire case assisting with positioning, prepping, draping, wound retraction, wound closure, dressing and abduction pillow placement. No fellow present. Please see Dr. Mahajan procedure note for specifics of the case. I attest to the content of the Intraoperative Record and any orders documented therein. Any exceptions are noted below.
[2022-09-20] MEDS ORDERED: diazePAM 2 MG TABLET PO PRN (12:07)
[2022-09-20] MEDS ORDERED: FAMOTIDINE 20 MG TAB PO PRN (12:07)
[2022-09-20] MEDS ORDERED: IBUPROFEN 200 MG TAB PO PRN (12:07)
--- NOTE | 2022-09-20 12:50 | Anesthesiology Progress Note ---
Date of Service September 20, 2022 Anesthesia Post Procedure Vital Signs Vital Signs: Temp Pulse Pulse Resp BP Pulse Ox O2 Del Method 09/20/22 12:20 64 13 100/62 100 Oxymask 09/20/22 12:40 36.5 C 63 20 105/67 98 Room Air 09/20/22 12:30 36.5 C 64 12 98/64 L 99 Room Air 09/20/22 12:10 69 25 H 93/64 L 100 Oxymask 09/20/22 12:01 36.2 C L 66 12 100/69 99 Oxymask 09/20/22 08:59 37.2 C 81 20 134/78 96 Room Air O2 Flow Rate 09/20/22 12:20 3 09/20/22 12:40 09/20/22 12:30 09/20/22 12:10 5 09/20/22 12:01 7 09/20/22 08:59 Transfer of Care Handoff Completed per policy Notes Mental Status: alert / awake / arousable and participated in evaluation Patient Amnestic to Procedure: Yes Nausea / Vomiting: adequately controlled Pain: adequately controlled Airway Patency, RR, SpO2: stable & adequate BP & HR: stable & adequate Hydration State: stable & adequate Neuraxial Anesthesia: was administered and sensory block is resolving Anesthetic Complications: no major complications apparent and Pt Satisfied with anesthetic care
[2022-09-20] MEDS: SODIUM CHLORIDE 0.9% 1000ML 1,000 ML IV SCH ×2 (13:15→22:46)
[2022-09-20] MEDS: KETOROLAC TROMETHAMINE 15 MG/ML VIAL IV SCH ×2 (14:06→21:16)
[2022-09-20] MEDS: ACETAMINOPHEN 500 MG TAB PO SCH ×2 (14:06→21:15)
--- NOTE | 2022-09-20 14:25 | XRay Report ---
XR pelvis 1-2V routine CLINICAL HISTORY: Postoperative evaluation. COMPARISON: Pelvis radiograph August 24, 2022. FINDINGS: Alignment of the total left hip arthroplasty is anatomic. There is no periprosthetic fract ure. No unexpected radiopaque foreign bodies are present. Right hip osteoarthritis is again noted. IMPRESSION: Expected findings following left hip arthroplasty. ACT 112: Negative or not required by law. Electronically signed by: Raul Jj M.D. 09/20/2022 2:24 PM
[2022-09-20] MEDS: Scopolamine CHECK PATCH PLACEMENT SCH (15:05)
[2022-09-20] MEDS: oxyCODONE HCL IR 5 MG TAB (IMMEDIATE RELEASE) PO PRN (16:12)
[2022-09-20] MEDS: ceFAZolin 2000MG 2,000 MG/15 ML SYR IV SCH (18:01)
[2022-09-20] MEDS ORDERED: TRANEXAMIC ACID / 0.7% NACL 1,000 MG/100 ML BAG IV SCH (18:15)
[2022-09-20] MEDS ORDERED: SENNA 8.6 MG TAB PO SCH (21:00)
[2022-09-20] MEDS ORDERED: NON-FORMULARY MEDICATION (Multivitamin Capsule) PO SCH (21:00)
[2022-09-20] MEDS ORDERED: CYANOCOBALAMIN (B-12) 500 MCG TABLET PO SCH (21:00)
[2022-09-20] MEDS ORDERED: NON-FORMULARY MEDICATION (Biotin 1 mg Capsule) PO SCH (21:00)
[2022-09-20] MEDS ORDERED: ARTIFICIAL TEARS OP OINT 3.5 GM TUBE OPB PRN (21:00)
[2022-09-20] MEDS ORDERED: CHOLECALCIFEROL 1,000 UNITS 25 MCG TAB PO SCH (21:00)
[2022-09-20] MEDS ORDERED: ASCORBIC ACID 500 MG TAB PO SCH (21:00)
[2022-09-20] MEDS ORDERED: ATORVASTATIN 20 MG TAB PO SCH (21:00)
[2022-09-20] MEDS: DOCUSATE SODIUM 100 MG CAP PO SCH (21:15)
[2022-09-20] MEDS: DOXYCYCLINE HYCLATE 100 MG CAP PO SCH (21:15)
[2022-09-21] MEDS: Scopolamine CHECK PATCH PLACEMENT SCH ×2 (02:31→07:14)
[2022-09-21] MEDS: KETOROLAC TROMETHAMINE 15 MG/ML VIAL IV SCH ×2 (02:31→07:15)
[2022-09-21] MEDS: ceFAZolin 2000MG 2,000 MG/15 ML SYR IV SCH (02:31)
[2022-09-21] MEDS: oxyCODONE HCL IR 5 MG TAB (IMMEDIATE RELEASE) PO PRN (04:33)
[2022-09-21] MEDS: ACETAMINOPHEN 500 MG TAB PO SCH (06:08)
[2022-09-21 06:40] LABS: Basophils # (auto) 0.02 K/uL (0-0.2); Basophils % (auto) 0.2 %; Hematocrit (blood only) 32.1 % (37.0-47.0); Hemoglobin 10.6 g/dl (12.0-16.0); Immature Granulocytes # (auto) 0.04 K/uL (0.01-0.20); Immature Granulocytes % (auto) 0.3 %; Lymphocytes # (auto) 0.45 K/uL (1.2-3.4); Lymphocytes % (auto) 3.7 %; Mean Corpuscular Hemoglobin 28.3 pg (25.0-34.0); Mean Corpuscular Volume 85.6 fL (80.0-100.0); Monocytes # (auto) 1.41 K/uL (0.11-0.59); Monocytes % (auto) 11.7 %; Neutrophils # (auto) 10.18 K/uL (1.40-6.50); Neutrophils % (auto) 84.1 %; Platelet Count 218 K/uL (130-400); RDW Coefficient of Variation 13.1 % (11.5-14.5); RDW Standard Deviation 40.6 fL (36.4-46.3); Red Blood Count 3.75 M/uL (4.20-5.40)
[2022-09-21 07:02] LABS: BUN Creatinine Ratio 21.6 (10-20); Calcium 8.4 mg/dl (8.6-10.3); Est GFR (African American) 112.1 ml/min; Est GFR (Non-African American) 96.7 ml/min; Potassium 4.1 mmol/L (3.5-5.1)
[2022-09-21] MEDS: DOCUSATE SODIUM 100 MG CAP PO SCH (07:16)
[2022-09-21] MEDS: DOXYCYCLINE HYCLATE 100 MG CAP PO SCH (07:16)
[2022-09-21] MEDS ORDERED: dexAMETHasone 4 MG TAB PO SCH (08:00)
[2022-09-21] MEDS ORDERED: CeleBREX 200 MG CAP PO SCH ×2 (09:00→21:00)
[2022-09-21] MEDS ORDERED: ASPIRIN 81 MG ECTAB PO SCH (09:00)
[2022-09-21] MEDS ORDERED: MULTIVITAMIN TAB PO SCH (09:00)
--- NOTE | 2022-09-21 09:32 | Orthopedic Progress Note ---
Date of Service September 21, 2022 Assessment & Plan (1) S/P total left hip arthroplasty: Plan: WBAT with walker assistance Total hip precautions reviewed PT/OT Ice with easy wrap DVT prophylaxis with QUOC stockings and aspirin Pain control with p.o. medication Keep Silverlon dressing in place Abduction pillow use x6 weeks Plan is to discharge home today with in-home physical therapy beginning tomorrow Follow-up at [facility] orthopedics as previously scheduled. With questions contact our clinic at [phone] Admission and Anticipated Discharge Date Admission Date: September 20, 2022 Subjective This 72-year-old female is day 1 status post left total hip arthroplasty. Patient states she is doing very well. She states that she is essentially pain- free at this point. She is very anxious to be discharged home. She states she is scheduled to do in-home physical therapy with [facility] home health. They are supposed to contact her this afternoon to set up her appointment for tomorrow. Currently she denies chest pain, shortness of breath, fever, chills, sweats, nausea, vomiting or diarrhea. She has been able to void and move her bowels. Review of Systems Review of Systems: All systems reviewed & are unremarkable except as noted in Subjective Physical Exam Physical Exam: Left hip: Outer dressing was removed. Silverlon is clean dry and intact and left in place. Patient is able to form active straight leg raise test. She is able to actively dorsi and plantarflex her foot without issue. She has no pain with logroll testing. She experiences some slight tension with light passive hip flexion to 90 degrees as well as with light passive internal and external rotation localized over the incision site. Her quad strength is 4 out of 5. She is neurovascular intact in the left lower extremity. Results & Data Vital Signs (Past 12 Hours) Vital Signs Temp Pulse Resp BP Pulse Ox O2 Del Method 09/21/22 02:32 36.6 C 57 L 18 128/74 96 Room Air 09/20/22 22:44 36.6 C 61 18 114/71 96 Room Air Diagnostic Findings Laboratory Results WBC 12.10 K/ul (4.8-10.8) H 09/21/22 05:35 RBC 3.75 M/uL (4.20-5.40) L 09/21/22 05:35 Hgb 10.6 g/dl (12.0-16.0) L 09/21/22 05:35 Hct 32.1 % (37.0-47.0) L 09/21/22 05:35 MCV 85.6 fL (80.0-100.0) 09/21/22 05:35 MCH 28.3 pg (25.0-34.0) 09/21/22 05:35 MCHC 33.0 g/dL (32.0-36.0) 09/21/22 05:35 RDW Std Deviation 40.6 fL (36.4-46.3) 09/21/22 05:35 RDW Coeff of Shanae 13.1 % (11.5-14.5) 09/21/22 05:35 Plt Count 218 K/uL (130-400) 09/21/22 05:35 MPV 10.0 fL (9.4-12.4) 09/21/22 05:35 Immature Gran % (Auto) 0.3 % 09/21/22 05:35 Neut % (Auto) 84.1 % 09/21/22 05:35 Lymph % (Auto) 3.7 % 09/21/22 05:35 Jones % (Auto) 11.7 % 09/21/22 05:35 Eos % (Auto) 0.0 % 09/21/22 05:35 Baso % (Auto) 0.2 % 09/21/22 05:35 Neut # (Auto) 10.18 K/uL (1.40-6.50) H 09/21/22 05:35 Lymph # (Auto) 0.45 K/uL (1.2-3.4) L 09/21/22 05:35 Jones # (Auto) 1.41 K/uL (0.11-0.59) H 09/21/22 05:35 Eos # (Auto) 0.00 K/uL (0-0.50) 09/21/22 05:35 Baso # (Auto) 0.02 K/uL (0-0.2) 09/21/22 05:35 Immature Gran # (Auto) 0.04 K/uL (0.01-0.20) 09/21/22 05:35 Sodium 139 mmol/L (136-145) 09/21/22 05:35 Potassium 4.1 mmol/L (3.5-5.1) 09/21/22 05:35 Chloride 108 mmol/L (98-107) H 09/21/22 05:35 Carbon Dioxide 26 mmol/L (21-32) 09/21/22 05:35 Anion Gap 5 (3-11) 09/21/22 05:35 BUN 11 mg/dl (6-23) 09/21/22 05:35 Creatinine 0.51 mg/dl (0.6-1.2) L 09/21/22 05:35 Est Cr Clr Drug Dosing 98.0 ml/min 09/21/22 05:35 Est GFR ( Amer) 112.1 ml/min 09/21/22 05:35 Est GFR (Non-Af Amer) 96.7 ml/min 09/21/22 05:35 BUN/Creatinine Ratio 21.6 (10-20) H 09/21/22 05:35 Glucose 146 mg/dl (70-99(Fasting)) H 09/21/22 05:35 Calcium 8.4 mg/dl (8.6-10.3) L 09/21/22 05:35 SARS-CoV-2, RNA, NAAT NEGATIVE (NEGATIVE) 09/20/22 Unknown Impressions Pelvis X-Ray 09/20/22 12:04 XR pelvis 1-2V routine CLINICAL HISTORY: Postoperative evaluation. COMPARISON: Pelvis radiograph August 24, 2022. FINDINGS: Alignment of the total left hip arthroplasty is anatomic. There is no periprosthetic fracture. No unexpected radiopaque foreign bodies are present. Right hip osteoarthritis is again noted. IMPRESSION: Expected findings following left hip arthroplasty. ACT 112: Negative or not required by law. Electronically signed by: Raul Jj M.D. 09/20/2022 2:24 PM
--- NOTE | 2022-09-21 09:40 | Discharge Summary ---
Date of Service September 21, 2022 Admission HPI Per Admitting Provider History of Present Illness (including history relevant to procedure): This 71-year-old female presents to the clinic today for her preoperative history and physical. Patient states that she has had persistent left hip pain localized to the groin area since receiving her second COVID vaccine about 2 years ago. Patient states that the pain is so debilitating that she is not able to walk her dog. She states that she has tried intra-articular hip corticosteroid injections, had a troches bursa injection ended therapy without any relief of her symptoms. She is electing to proceed with surgical intervention at this time. Review Of Systems: A 12 point review of systems is performed and is unremarkable except for those things stated in the HPI and past medical history. Past Medical History: Problems: Hallux rigidus, right foot Lumbar spinal stenosis Left lumbar radiculopathy Hip bursitis, left Sacroiliitis Intertrigo History of basal cell carcinoma Seborrheic keratoses Rash Osteoarthritis of left hip ROSACEA Rosacea Multiple nevi Changing skin lesion Brachioradial pruritus Notalgia paresthetica Contact dermatitis Right foot pain Actinic keratosis Digital mucous cyst S/P orthopedic surgery, follow-up exam Meniscus tear Left knee pain Closed fracture of 5th metacarpal Pruritus Milia Hx of skin malignancy Eczema Acute cystitis Weight monitoring BCC (basal cell carcinoma of skin) Hyperlipidemia Osteopenia Family history of skin cancer Procedure History Procedure Procedure Date Comments Procedure - laser tx on face Colonoscopy normal Shave biopsy and cauterization of skin 12/21/2020 - Shave with cautery - Left nose Shave biopsy and cauterization of skin 12/16/2019 Punch biopsy of skin 01/30/2018 Knee meniscus 03/19/2016 Shave biopsy of skin 11/04/2012 Cataracts, bilateral 08/29/2012 Knee meniscus 2004 Allergies and Sensitivities: penicillins(Stomach upset) erythromycin(Rash) Current Home Meds: (Last Updated 08/24 13:20) ascorbic acid (Vitamin C 500 mg oral tablet) 500 mg PO Daily atorvastatin (Lipitor 20 mg oral tablet) 20 mg PO Daily biotin (biotin 5 mg oral capsule) 1,000 mg PO Daily cholecalciferol (Vitamin D3 1000 intl units oral capsule) 1,000 Int_Unit PO Daily chondroitin-glucosamine (Cosamin DS 500 mg-400 mg oral tablet) 1 tab PO Daily clobetasol topical (clobetasol 0.05% topical cream) 1 appl topical bid To rash BID for 2 weeks cycloSPORINE ophthalmic (Restasis 0.05% ophthalmic emulsion) 180 each Responsible Provider: MARY LOU HERRERA 06/13 10:56 doxycycline (doxycycline monohydrate 100 mg oral tablet) 30 each, TAKE 1 TABLET BY MOUTH TWICE DAILY NEEDED FOR ROSACEA FLARES Responsible Provider: CELIA MEJIA 06/13 10:55 doxycycline (doxycycline hyclate 100 mg oral capsule) 10 each, TAKE 1 CAPSULE BY MOUTH TWICE DAILY FOR 5 DAYS Responsible Provider: KAMRAN LAMB 07/16 11:30 ivermectin topical (Soolantra 1% topical cream) To face daily multivitamin 1 tab PO Daily predniSONE (predniSONE 10 mg oral tablet) 60mg PO x 1 day, then 50mg PO x1 day, then 40mg PO x 1 day, then 30mg PO x1 day, then 20mg PO x 1 day, then 10mg PO x 1 day then stop tretinoin topical (tretinoin 0.025% topical cream) 1 appl topical qhs triamcinolone topical (triamcinolone 0.1% topical cream) 1 appl topical bid To itchy forearms BID as needed. valACYclovir (Valtrex 1 g oral tablet) 1 g PO q12h 2 grams once and repeat in 12 hours at onset of cold sore symptomos, then stop. Initial Wt: 08/24 75.6 kg 166 lb Admission Exam Per Admitting Provider Physical Exam: (relevant to the procedure, including heart and lung evaluation) General: Alert and oriented x3 with proper grooming and hygiene Eyes: Pupils are equal and reactive to light with accommodation. Extraocular meds are intact Throat: Posterior oropharynx is clear with absence of edema, erythema or exudate. Dentition is appropriate Cardiac: Regular rate and rhythm with no murmurs or gallops appreciated Lungs: Clear to auscultation throughout with no wheezing, rales or rhonchi Abdomen: Mildly obese, nondistended, nontender with NABS Extremities: Left hip; flexion is limited to 90 degrees, external rotation to 40 degrees and internal rotation to 5 degrees with referred pain to the groin. Scour and impingement tests are both positive. Straight leg raise test causes referred pain to the groin. Logroll test and Stinchfield tests are both negative. SON test is positive with referred pain as well. Patient is neurovascular intact in the left lower extremity and walks with a slight antalgic gait. Neuro: Cranial nerves II through XII are intact no motor or sensory deficit Skin: Normal in appearance with no open skin areas or discharge Principal Diagnosis Left Hip Osteoarthritis Discharge Exam Left hip: Outer dressing was removed. Silverlon is clean dry and intact and left in place. Patient is able to form active straight leg raise test. She is able to actively dorsi and plantarflex her foot without issue. She has no pain with logroll testing. She experiences some slight tension with light passive hip flexion to 90 degrees as well as with light passive internal and external rotation localized over the incision site. Her quad strength is 4 out of 5. She is neurovascular intact in the left lower extremity. Discharge Data Allergies Allergy/AdvReac Type Severity Reaction Status Date / Time erythromycin base Allergy Intermediate Hives Verified 09/20/22 08:44 omeprazole [From Prilosec] AdvReac Intermediate Vomiting Verified 09/20/22 08:44 penicillin G AdvReac Mild ? GI Verified 09/20/22 08:44 symptoms Procedures Performed Operation Date: 09/20/22 10:05 Actual Procedures p Left Total Hip Arthroplasty--Uncemented(Left) - Haider Mahajan MD Hospital Course (1) S/P total left hip arthroplasty: Patient had an uneventful overnight stay following left total hip arthroplasty. She is very pleased with the results of her surgery. She is anxious to be discharged home later this morning. She is scheduled to begin in-home physical therapy with [facility] home health tomorrow. WBAT with walker assistance Total hip precautions reviewed PT/OT Ice with easy wrap DVT prophylaxis with QUOC stockings and aspirin Pain control with p.o. medication Keep Silverlon dressing in place Abduction pillow use x6 weeks Plan is to discharge home today with in-home physical therapy beginning tomorrow Follow-up at [facility] orthopedics as previously scheduled. With questions contact our clinic at [phone] Total Time Total Time Spent Total Time Spent (In Minutes): 20 mins Discharge Plan Discharge Items Patient Disposition: Home - Home Health Services Reason For Visit: Left Hip Osteoarthritis Discharge Diagnosis: left hip osteoarthritis Activity: As commented below Lifting: None Bathing: Keep incision dry Bathing Comment: May shower tomorrow Sexual Activity: Wait until after follow-up appointment Exercise/Sports: Wait until after follow-up appointment Driving/Machine Use: No driving until cleared by customer management specialist Weightbearing: Left weightbearing Weightbearing Comment: as tolerated with walker assistance Non-emergency contact: Surgeon Call non-emergency contact if: you have any medication questions, your pain is not controlled, your temperature is above 101.5, your wound has increased drainage and your wound pain has increased Follow-up/Referrals: Kamran Lamb MD [Primary Care Provider] - Diet: Regular Addtl Attending Provider Instructions: Post-operative Instructions Dear Patient and Family/Friends, Before you are discharged from the hospital, it is important to know what to expect when you get home after surgery. To that end, we have created this sheet of discharge instructions which covers many commonly asked questions. Make sure you go through this sheet in its entirety with your nurse before you are discharged. Please note that we will go over the specifics of your surgery and recovery when you return for your first post-operative visit. Sincerely, Dr. Mahajan Medications 1. Oxycodone 5 mg: take 1-2 tabs every 4-6 hours as needed for pain control. This will be sent to your pharmacy. 2. Diclofenac Sodium 75 mg: take one tab twice daily for 30 days post operatively for pain and inflammation relief. This will be sent to your pharmacy with 1 refill. 3. Aspirin 81 mg: take one tablet twice daily for 30 days post operatively for blood clot prevention. Please purchase. 4. Extra Strength Tylenol 500 mg: take 2 tabs every 6-8 hours as needed for additional pain relief. Please purchase. Pain Expect to be in a fair amount of pain after surgery. Remember, our goal is not to eliminate your pain, but to make it tolerable. It is a good idea to stay ahead of your pain by taking the medications you were prescribed once you get home. Typically, the pain starts improving 3-7 days after surgery. You should start weaning off the narcotic pain medication (oxycodone, hydrocodone, hydromorphone, morphine) as soon as your pain improves. Please call our office if your pain is not adequately controlled. Ice Ice your operative site at least 5 times a day for 15-30 minutes at a time. Make sure you have a thin cloth between the ice or cooling unit and your skin to prevent bob bite. This is especially important if you received a nerve block. Continue icing your operative site for the first 5-7 days after surgery, then as needed. Diet/Nausea/Vomiting Start by drinking clear liquids and eating crackers. If you can tolerate this, then you may resume your normal diet. If you feel nauseated or vomit, take Zofran/ondansetron (if prescribed). Please call our office if you have intractable nausea or vomiting, or, if after hours, you may go to the Emergency Room for help. Constipation Constipation is a common side effect of narcotic pain medication. If you have not had a bowel movement within 2 days after surgery, we recommend purchasing an over the counter laxative such as Milk of Magnesia, Dulcolax, or Miralax from a local pharmacy, and taking it as instructed. Call our clinic if any questions. Nerve block The anesthesia team sometimes places a nerve block to help with post-operative pain control. This results in significant numbness and inability to move the extremity. The nerve block usually wears off in 8-12 hours, but sometimes can last up to 24 hours. Please call our office if you are still unable to move your extremity after 24 hours, unless you received a pain pump to take home. Nerve blocks typically wear off quickly, so start taking pain medication as soon as you start feeling soreness near your surgical site. Weight bearing and Range of Motion. Do not bear any weight through your operative extremity immediately after surgery. If you had upper extremity surgery, do not lift anything with that arm. If you are in a knee brace, keep it locked in place until your follow-up. We will discuss your weight bearing, range of motion, and lifting restrictions in detail at your first post-operative appointment. Continuous Passive Motion (CPM) Machine If you were prescribed a CPM machine, it will start after your first post- operative appointment, at which time we will give you instructions on the range of motion settings and duration of treatment Physical therapy You will be given a prescription for physical therapy or occupational therapy at your first post-operative appointment. Typically, patients start therapy within 1 week of surgery Wound care and showering We will inspect your wound at your first post-operative visit, and may do a dressing change at that time. Most patients will be in a water-proof dressing that is removed 14 days after surgery. It is normal to see some dried blood on the dressing. Do not remove your dressing, paper strips or sutures yourself unless you are given permission. Showering is allowed the day after surgery. Do not scrub or remove any dressings. The wound should not be submerged underwater (i.e. in a bathtub or pool) until 4 weeks after surgery QUOC stockings If you were given white stockings, these are to be worn at all times except to shower (on both legs) for the first 2 weeks after surgery. Driving You may not drive while taking narcotic pain medication or while in a cast, splint, sling or brace. You, the patient, need to make the final determination about when you are safe to drive, however, the earliest you may consider driving after surgery is below: Hand/Wrist/Elbow Surgery: 3 days Shoulder Surgery: 2 weeks Hip,/Knee/Ankle Surgery: 4 weeks Fracture repair: 6 weeks Return to Work Your return to work depends on what surgery was done and what type of work you do. Please bring any paperwork your employer needs completed to your first post-operative visit. Also, bring a description of your job duties, as this helps us to understand what risks you may face at work. Travel Avoid long distance travel (greater than 1 hour) in airplanes and cars for the first 6 weeks after surgery. If you must travel, you need to have a Doppler ultrasound done before you travel to rule out a blood clot in your legs. Follow-up You should have a follow-up appointment already scheduled 1-2 days after surgery. If not, please contact our office to make this appointment before you leave the hospital. When to call the office It is normal to have swelling and bruising in the limb that was operated on. This will improve with time. It is also normal to have fevers for the first 2 days after surgery. Reasons you should call your doctor include: Uncontrolled pain; Nausea, vomiting, or constipation that does not improve with medication; Fevers over 101.5, chills, sweats; Drainage or bleeding from the wound; Foul odor; Spreading areas of redness; Any other concerns Pending Studies at Discharge: No Stand-Alone Forms: My [facility] Medications and RI Order Prescriptions: New acetaminophen [Tylenol Extra Strength] 500 mg Tablet 1,000 mg PO Q8 30 Days Qty: 180 0RF aspirin 81 mg Tablet,Delayed Release (Dr/Ec) 81 mg PO BID 30 Days Qty: 60 0RF oxycodone 5 mg Tablet 5 - 10 mg PO Q4H PRN (Reason: Post op pain control) Qty: 28 0RF diclofenac sodium 75 mg tablet,delayed release (DR/EC) 75 mg PO BID 30 Days Qty: 60 1RF Continued doxycycline hyclate 100 mg capsule 100 mg PO BID 10 Days Qty: 20 0RF famotidine [Pepcid] 20 mg tablet 20 mg PO DAILY PRN (Reason: Acid Reflux) ascorbic acid (vitamin C) 500 mg tablet 1 gm PO HS cyanocobalamin (vitamin B-12) 2,000 mcg tablet 2,000 mcg PO HS diazepam 2 mg tablet 1 mg PO BID PRN (Reason: anxiety) Qty: 10 0RF multivitamin Capsule 1 cap PO HS biotin 1 mg Capsule 1 mg PO HS cholecalciferol (vitamin D3) [Vitamin D3] 25 mcg (1,000 unit) capsule 2,000 units PO HS cyclosporine [Restasis] 0.05 % dropperette 1 drp OPB BID atorvastatin [Lipitor] 20 mg tablet 20 mg PO HS Discontinued ibuprofen [Advil] 200 mg Tablet 400 mg PO Q6H PRN (Reason: Pain) Admission Data Admit Date/Time: 09/20/22 12:04 Attending Provider: Haider Mahajan Admit Provider: Haider Mahajan Primary Care Provider: Kamran Lamb Other Providers: [facility],Home Healthcare
== END 2022-09-21 11:00 | disposition home health service (06) ==
LOC: ASU 07:56 → 3E 07:56

== ENCOUNTER 2022-09-28 11:32 | Inpatient (IN) ==
[2022-09-28] MEDS ORDERED: ONDANSETRON INJ 2 MG/ML 2 ML VIAL IV STA ×2 (12:03→17:26)
[2022-09-28] MEDS ORDERED: HYDROmorphone INJ 0.5 MG/0.5 ML SYR IV STA ×2 (12:03→14:52)
--- NOTE | 2022-09-28 12:07 | Emergency Department Note ---
Impression & Plan Morenita-prosthetic fracture around prosthetic hip ED Provider Note Name: TARUN JEFFERS Age: 72 Sex: F Arrives Via: Ambulance Informant: Patient, family, EMS ED Provider: Piotr Thomas MD Chief Complaint: Left hip and Impression: As per impression above Medical Decision Makin-year-old pleasant female arrives for evaluation of left hip pain. Patient with left total hip arthroplasty 1 week ago. Was doing home PT today and when she sat down in chair she noted sudden onset left hip pain and almost a pop. On arrival via EMS patient is quite uncomfortable. She has a mildly shortened externally rotated left leg. Excellent pulses. Severe pain with range of motio n left hip. Given IV Dilaudid for pain control. X-ray reveals periprosthetic left hip fracture. Reviewed with orthopedics and plan will be to operate tomorrow or the following day depending on OR logistics. Patient and family kept up-to-date with plan as there were multiple phone calls and discussions with both orthopedics and hospitalist throughout determine best plan of care. Patient without any other injuries. She did not strike her head or neck. There is no evidence of need for neuroimaging at this time. She has no chest pain, shortness of breath, abdominal pain, back pain or other concerning signs or symptoms. She has excellent pulses in her left leg no need for traction or fur ther imaging at this time. Of note at this point there is no clear indication of infectious etiology. Prior Medical Record and Triage/Nursing Notes reviewed by Me External chart reviewed by me including recent operative report Differentials:Fracture, dislocation, hardware failure, hematoma, infection, muscular strain amongst many other pathologies considered Vital Signs: reviewed and remarkable for no significant abnormalities Interventions: Dilaudid 0.5 mg IV x2, Zofran 4 mg IV, normal saline bolus Labs:Reviewed by me and remarkable for no significant abnormalities Imaging:Xray Results per my interpretation: Pelvis with 2 view left hip. Periprosthetic left hip fracture as per my interpretation Consults:Dr Edward (initial Ortho Surgeon) requested I reach out to on-call orthopedics here as he is currently out of town. Discussed with [place]. Juarez [place] [facility] [place] and after reviewing imaging he will plan to take the patient to the OR tomorrow or the following day. Discussed with Dr. Javier of the [facility] hospitalist service for hospitalization and inpatient management. Plan: Disposition:Hospitalization. Condition: Good History of Present Illness:72-year-old female arrives for evaluation of left hip pain. Patient with left hip replacement about 1 week ago at this facility. She states she done well after surgery and went home the next day. She has been at home doing physical therapy. Today physical therapy is walking around stairs and outside she was doing pretty well with this. When she sat down in her chair she noted a pop in her left hip and now severe pain. Severe pain with any movement though after resting for a bit it does seem to ease up. Denies any fevers, chills, nausea, vomiting, chest pain, shortness of breath back pain, abdominal pain, urinary/bowel symptoms or other concerning signs or symptoms. No radiation of pain. She notes some swelling of the left leg which has been ongoing since surgery. She has been taking aspirin twice a day. She takes no other blood thinners. No medications prior to arrival. Arrives via EMS to the amount of pain she is having. Past History:See Below Home Medications:See Below Allergies: Erythromycin, omeprazole, penicillin Vitals:Blood Pressure: 115/78, Pulse 75, RR 18, O2 99% on RA Physical Exam: GENERAL: Patient is uncomfortable appearing and in moderate distress. EYES: No scleral icterus, unremarkable pupils. RESPIRATORY: No dyspnea. Clear to auscultation and equal bilaterally. No wheeze, no rhonchi. CARDIOVASCULAR: Regular rate and rhythm.No murmurs, rubs, gallops appreciated. GASTROINTESTINAL: Abdomen soft, non-tender, no peritonitis.Bowel sounds positive.No masses appreciated. BACK: No midline tenderness, no CVA tenderness EXTREMITIES: Patient has a shortened left leg mildly externally rotated. Tenderness palpation over left lateral hip and severe pain with attempted movement of the left hip. There is still dressing over the left lateral incision without any drainage. Mild erythema consistent with postoperative. Distal pulses are intact. Sensation is intact. She has some edema of the left leg compared to right but there is no calf tenderness palpation postoperative b ruising of thigh extending down to the knee noted. NEUROLOGIC: Alert and oriented, no focal neurologic deficit appreciated. SKIN: No rash, no jaundice, no diaphoresis. PSYCH: Appropriate GCS: 15 ED Course: Times/Reassessments: Patient quite anxious throughout stay secondary to uncertainty. Essentially minimal pain unless in any way moving the hip. Given the amount of distress she has just with moving I do feel that Jamil is indicated and thus this was ordered. 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 Chronic low back pain without sciatica Generalized anxiety disorder GERD without esophagitis History of basal cell cancer Hypercholesterolemia IBS (irritable bowel syndrome) Osteoporosis Prediabetes Per records, patient denies Rosacea Surgical History History of arthroscopy History of cataract surgery History of colonoscopy History of dilatation and curettage History of esophagogastroduodenoscopy (EGD) History of laparoscopy History of tooth extraction Status post epidural steroid injection Family History Mother Arthritis Father Arthritis Diabetes Prostate cancer Brother FH: CABG (coronary artery bypass surgery) Coronary heart disease Diabetes Prostate cancer Vasomotor rhinitis Other Myocardial infarction Denies family history of Ovarian cancer Breast cancer Colorectal cancer Social History Smoking Status: Never smoker Second Hand Exposure: No; Do You Dip or Chew Tobacco: No; Hx Alcohol Use: Yes Alcohol type: wine Hx Substance Use: No Preferred Language: Tunisian Communication Ability: Effective Visual Impairment: No Limitations Hearing Ability: Normal Pollution Control Chemist Required: No Beliefs That Will Affect Care: None marital status: Current Living Situation: Spouse current occupational status: retired current occupation: used to have a [employer], [employer], then [employer] before retiring Feels Safe at Home: Yes Childhood Exposure to Second-Hand Smoke: Yes Diet: regular Dental Care, Regularly: Yes Physical Activity Frequency: Daily Physical Activity Frequency Comment: walking, over 60min a day Seatbelt Use: always Sunscreen Use: Yes Assistive Devices: Hospital Bed and Walker Allergies Allergies Allergy/AdvReac Type Severity Reaction Status Date / Time erythromycin base Allergy Intermediate Hives Verified 09/20/22 08:44 omeprazole [From Prilosec] AdvReac Intermediate Vomiting Verified 09/20/22 08:44 penicillin G AdvReac Mild ? GI Verified 09/20/22 08:44 symptoms Home Meds Home Medications Medication Instructions Recorded Confirmed biotin 1 mg capsule 1 mg PO HS 06/09/18 09/20/22 multivitamin 1 cap PO HS 06/09/18 09/20/22 ascorbic acid (vitamin C) 500 mg 1 gm PO HS 01/05/19 09/20/22 tablet cholecalciferol (vitamin D3) 25 2,000 units PO HS 09/23/19 09/20/22 mcg (1,000 unit) capsule (Vitamin D3) cyanocobalamin (vitamin B-12) 2,000 mcg PO HS 09/23/19 09/20/22 2,000 mcg tablet cyclosporine 0.05 % eye drops in a 1 drp OPB BID 09/24/19 09/20/22 dropperette (Restasis) famotidine 20 mg tablet (Pepcid) 20 mg PO DAILY PRN Acid Reflux 02/28/22 09/20/22 atorvastatin 20 mg tablet (Lipitor) 20 mg PO HS 08/16/22 09/20/22 Previous Rx's Medication Instructions Recorded diazepam 2 mg tablet 1 mg PO BID PRN anxiety #10 tabs 07/27/22 doxycycline hyclate 100 mg capsule 100 mg PO BID 10 days #20 caps 09/17/22 acetaminophen 500 mg tablet 1,000 mg PO Q8 post op pain 09/21/22 (Tylenol Extra Strength) control 30 days #180 tabs aspirin 81 mg tablet,delayed 81 mg PO BID DVT prophylaxis 30 09/21/22 release days #60 tabs diclofenac sodium 75 mg 75 mg PO BID post op pain and 09/21/22 tablet,delayed release inflammation relief 30 days #60 tabs oxycodone 5 mg tablet 5 - 10 mg PO Q4H PRN Post op pain 09/21/22 control #28 tabs Results & Data (ED) Vital Signs Vital Signs - 24 hr 09/28/22 11:42 09/28/22 13:08 09/28/22 13:33 Pulse Rate 75 84 86 Pulse Rate from SpO2 Sensor 84 Respiratory Rate 18 18 Respiratory Depth Normal Blood Pressure 115/78 Blood Pressure Mean 90 Pulse Oximetry 99 95 Oxygen Delivery Method Room Air Sepsis Recent Fever Within 48 Hours No Sepsis New/Unexplained Change in Mental Status N/A Sepsis Action Taken by Nursing No Action Required 09/28/22 13:30 09/28/22 14:00 09/28/22 14:30 Pulse Rate 80 Pulse Rate from SpO2 Sensor 84 85 Respiratory Rate 20 Respiratory Depth Blood Pressure 125/77 131/92 132/72 Blood Pressure Mean 93 105 92 Pulse Oximetry 95 96 98 Oxygen Delivery Method Room Air Room Air Room Air Sepsis Recent Fever Within 48 Hours Sepsis New/Unexplained Change in Mental Status Sepsis Action Taken by Nursing Laboratory Data 09/28/22 12:19 09/28/22 12:19 Lab Results 09/28/22 09/28/22 09/28/22 Range/Units 12:19 12:19 14:41 WBC 10.79 (4.8-10.8) K/ul RBC 3.96 L (4.20-5.40) M/uL Hgb 11.1 L (12.0-16.0) g/dl Hct 34.0 L (37.0-47.0) % MCV 85.9 (80.0-100.0) fL MCH 28.0 (25.0-34.0) pg MCHC 32.6 (32.0-36.0) g/dL RDW Std Deviation 40.6 (36.4-46.3) fL RDW Coeff of Shanae 13.1 (11.5-14.5) % Plt Count 319 (130-400) K/uL MPV 9.4 (9.4-12.4) fL Immature Gran % (Auto) 1.5 % Neut % (Auto) 74.9 % Lymph % (Auto) 11.2 % [place] % (Auto) 9.5 % Eos % (Auto) 2.3 % Baso % (Auto) 0.6 % Neut # (Auto) 8.07 H (1.40-6.50) K/uL Lymph # (Auto) 1.21 (1.2-3.4) K/uL [place] # (Auto) 1.03 H (0.11-0.59) K/uL Eos # (Auto) 0.25 (0-0.50) K/uL Baso # (Auto) 0.07 (0-0.2) K/uL Immature Gran # (Auto) 0.16 (0.01-0.20) K/uL Sodium 138 (136-145) mmol/L Potassium 4.2 (3.5-5.1) mmol/L Chloride 104 (98-107) mmol/L Carbon Dioxide 29 (21-32) mmol/L Anion Gap 5 (3-11) BUN 13 (6-23) mg/dl Creatinine 0.46 L (0.6-1.2) mg/dl Est Cr Clr Drug Dosing 108.7 ml/min Est GFR ( Amer) 116.0 ml/min Est GFR (Non-Af Amer) 100.1 ml/min BUN/Creatinine Ratio 28.3 H (10-20) Glucose 120 H (70-99(Fasting)) mg/dl Calcium 9.4 (8.6-10.3) mg/dl Magnesium 1.8 (1.7-2.4) mg/dl SARS-CoV-2, RNA, NAAT NEGATIVE (NEGATIVE) Administered Medications Discontinued Medications Hydromorphone HCl (Hydromorphone Inj 0.5 Mg/0.5 Ml Syr) 0.5 mg IV NOW STA Stop: 09/28/22 12:04 Last Admin: 09/28/22 12:29 Dose: 0.5 mg Documented By: JUVENTINO Ondansetron HCl (Ondansetron Inj 2 Mg/Ml 2 Ml Vial) 4 mg IV NOW STA Stop: 09/28/22 12:04 Last Admin: 09/28/22 12:30 Dose: 4 mg Documented By: JUVENTINO Imaging Data Radiologist's Impression: Hip/Pelvis X-Ray 09/28/22 12:03 XR hip LT 2V w pelvis CLINICAL HISTORY: post op hip pain. Left hip pain. COMPARISON STUDY: Pelvis 09/20/2022. FINDINGS: Interval development of a periprosthetic fracture within the proximal left femur with avulsion of the lesser trochanter. This demonstrates up to 6 mm of distraction. No dislocation. The visualized pelvic bones are intact. There is moderate osteoarthritis again noted within the right hip. No fractures within the left hip prosthesis. There is mild inferior displacement of the left femoral prosthesis of approximately 1.5 cm compared to the prior study. This likely due to the periprosthetic fracture. IMPRESSION: Interval development of a periprosthetic fracture within the prox imal left femur as described above. ACT 112: Negative or not required by law. Electronically signed by: Osmani Tejeda M.D. 09/28/2022 2:18 PM Discharge Plan Visit Data Chief Complaint: Hip Pain Stated Complaint: HIP PAIN ED Provider: Piotr Thomas Discharge Problem: Morenita-prosthetic fracture around prosthetic hip Forms Stand Alone Forms: [employer] [facility] [employer] Prescriptions Prescriptions: No Action doxycycline hyclate 100 mg capsule 100 mg PO BID 10 Days Qty: 20 0RF famotidine [Pepcid] 20 mg tablet 20 mg PO DAILY PRN (Reason: Acid Reflux) ascorbic acid (vitamin C) 500 mg tablet 1 gm PO HS cyanocobalamin (vitamin B-12) 2,000 mcg tablet 2,000 mcg PO HS diazepam 2 mg tablet 1 mg PO BID PRN (Reason: anxiety) Qty: 10 0RF multivitamin Capsule 1 cap PO HS biotin 1 mg Capsule 1 mg PO HS cholecalciferol (vitamin D3) [Vitamin D3] 25 mcg (1,000 unit) capsule 2,000 units PO HS cyclosporine [Restasis] 0.05 % dropperette 1 drp OPB BID atorvastatin [Lipitor] 20 mg tablet 20 mg PO HS acetaminophen [Tylenol Extra Strength] 500 mg Tablet 1,000 mg PO Q8 30 Days Qty: 180 0RF aspirin 81 mg Tablet,Delayed Release (Dr/Ec) 81 mg PO BID 30 Days Qty: 60 0RF oxycodone 5 mg Tablet 5 - 10 mg PO Q4H PRN (Reason: Post op pain control) Qty: 28 0RF diclofenac sodium 75 mg tablet,delayed release (DR/EC) 75 mg PO BID 30 Days Qty: 60 1RF Referrals Referrals: Leti Lamb MD [Primary Care Provider] -
[2022-09-28 12:46] LABS: Basophils # (auto) 0.07 K/uL (0-0.2); Basophils % (auto) 0.6 %; Eosinophils # (auto) 0.25 K/uL (0-0.50); Eosinophils % (auto) 2.3 %; Hemoglobin 11.1 g/dl (12.0-16.0); Immature Granulocytes # (auto) 0.16 K/uL (0.01-0.20); Immature Granulocytes % (auto) 1.5 %; Lymphocytes # (auto) 1.21 K/uL (1.2-3.4); Lymphocytes % (auto) 11.2 %; Mean Corpuscular Hgb Conc 32.6 g/dL (32.0-36.0); Mean Corpuscular Volume 85.9 fL (80.0-100.0); Mean Platelet Volume 9.4 fL (9.4-12.4); Monocytes # (auto) 1.03 K/uL (0.11-0.59); Monocytes % (auto) 9.5 %; Neutrophils # (auto) 8.07 K/uL (1.40-6.50); Neutrophils % (auto) 74.9 %; Platelet Count 319 K/uL (130-400); RDW Coefficient of Variation 13.1 % (11.5-14.5); RDW Standard Deviation 40.6 fL (36.4-46.3); Red Blood Count 3.96 M/uL (4.20-5.40); White Blood Count 10.79 K/ul (4.8-10.8)
[2022-09-28 13:00] LABS: BUN Creatinine Ratio 28.3 (10-20); Calcium 9.4 mg/dl (8.6-10.3); Creatinine Clr Calc Pharmacy 108.7 ml/min; Est GFR (Non-African American) 100.1 ml/min; Magnesium 1.8 mg/dl (1.7-2.4); Potassium 4.2 mmol/L (3.5-5.1)
--- NOTE | 2022-09-28 14:26 | XRay Report ---
XR hip LT 2V w pelvis CLINICAL HISTORY: post op hip pain. Left hip pain. COMPARISON STUDY: Pelvis 09/20/2022. FINDINGS: Interval development of a periprosthetic fracture within the proximal left femur with avuls ion of the lesser trochanter. This demonstrates up to 6 mm of distraction. No dislocation. The visual ized pelvic bones are intact. There is moderate osteoarthritis again noted within the right hip. No f ractures within the left hip prosthesis. There is mild inferior displacement of the left femoral pros thesis of approximately 1.5 cm compared to the prior study. This likely due to the periprosthetic fra cture. IMPRESSION: Interval development of a periprosthetic fracture within the proximal left femur as desc ribed above. ACT 112: Negative or not required by law. Electronically signed by: Osmani Tejeda M.D. 09/28/2022 2:18 PM
--- NOTE | 2022-09-28 16:10 | History & Physical Report ---
Date of Service September 28, 2022 Assessment & Plan (1) Morenita-prosthetic fracture around prosthetic hip: Plan: Pain medication with acetaminophen 1st line, morphine 2nd line NPO after midnight with IV fluids CXR - no acute process EKG - pending Consult orthopedics - ER provider discussed with Dr Juarez on admission (2) Lyme disease: Plan: Finish course of doxycycline previously prescribed for rash on leg, finish date 09/29 (3) Hypercholesterolemia: Plan: Continue atorvastatin Plan VTE Prophylaxis - deferred pending operation tomorrow Diet - regular, NPO after midnight Disposition - admit to med/surg Admission and Anticipated Discharge Date Admission Date: September 28, 2022 History of Present Illness Chief Complaint: Left hip pain Primary Care Provider: Leti Lamb MD Lolita Ordoñez is a 72 year old female who presents to the ER with left hip pain. She recently underwent a left total hip arthroplasty performed by Dr Edward on September 20, 2022. She reports progressively wosening pain since the operation. She was discharged home the following day post operatively. She reports celebrex caused diarrhea so she had to come off this which definitely made the pain worse. However today with physical therapy while walking down steps she noticed her leg gave out to the left slightly but she was able to complete her PT session. Around 10:15am today she went to sit down and on the way down everything suddenly shifted to the left and she had excruciating pain in her left hip. Severity 20/10 initially, currently 0/10 as long as she doesn't move. She denies any chest pain, shortness of breath or dizziness prior to sitting down. She has known osteoporosis (notably in her back rather than her hips) which had been improving on Fosamax and she was subsequently taken off this earlier this year. She denies any history of heart attacks, strokes or exertional chest pain. Allergies Allergy/AdvReac Type Severity Reaction Status Date / Time erythromycin base Allergy Intermediate Hives Verified 09/20/22 08:44 omeprazole [From Prilosec] AdvReac Intermediate Vomiting Verified 09/20/22 08:44 penicillin G AdvReac Mild ? GI Verified 09/20/22 08:44 symptoms Home Medications Medication Instructions Recorded Confirmed Type biotin 1 mg capsule 1 mg PO HS 06/09/18 09/20/22 History multivitamin 1 cap PO HS 06/09/18 09/20/22 History ascorbic acid (vitamin C) 500 mg 1 gm PO HS 01/05/19 09/20/22 History tablet cholecalciferol (vitamin D3) 25 2,000 units PO HS 09/23/19 09/20/22 History mcg (1,000 unit) capsule (Vitamin D3) cyanocobalamin (vitamin B-12) 2,000 mcg PO HS 09/23/19 09/20/22 History 2,000 mcg tablet cyclosporine 0.05 % eye drops in a 1 drp OPB BID 09/24/19 09/28/22 History dropperette (Restasis) famotidine 20 mg tablet (Pepcid) 20 mg PO DAILY PRN Acid Reflux 02/28/22 09/20/22 History diazepam 2 mg tablet 1 mg PO BID PRN anxiety #10 tabs 07/27/22 09/28/22 Rx atorvastatin 20 mg tablet (Lipitor) 20 mg PO HS 08/16/22 09/28/22 History doxycycline hyclate 100 mg capsule 100 mg PO BID 10 days #20 caps 09/17/22 09/28/22 Rx acetaminophen 500 mg tablet 1,000 mg PO Q8 post op pain 09/21/22 Rx (Tylenol Extra Strength) control 30 days #180 tabs aspirin 81 mg tablet,delayed 81 mg PO BID DVT prophylaxis 30 09/21/22 Rx release days #60 tabs diclofenac sodium 75 mg 75 mg PO BID post op pain and 09/21/22 09/28/22 Rx tablet,delayed release inflammation relief 30 days #60 tabs oxycodone 5 mg tablet 5 - 10 mg PO Q4H PRN Post op pain 09/21/22 09/28/22 Rx control #28 tabs Past Med/Surg History Medical History 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 Chronic low back pain without sciatica Generalized anxiety disorder GERD without esophagitis History of basal cell cancer Hypercholesterolemia IBS (irritable bowel syndrome) Osteoporosis Prediabetes Per records, patient denies Rosacea Surgical History History of arthroscopy History of cataract surgery History of colonoscopy History of dilatation and curettage History of esophagogastroduodenoscopy (EGD) History of laparoscopy History of tooth extraction Status post epidural steroid injection Family History Mother Arthritis Father Arthritis Diabetes Prostate cancer Brother FH: CABG (coronary artery bypass surgery) Coronary heart disease Diabetes Prostate cancer Vasomotor rhinitis Other Myocardial infarction Denies family history of Ovarian cancer Breast cancer Colorectal cancer Social History Smoking Status: Never smoker Second Hand Exposure: No; Do You Dip or Chew Tobacco: No; Tobacco Cessation Education Requested by Patient: No Hx Alcohol Use: Yes Alcohol type: wine Hx Substance Use: No Preferred Language: Central African Communication Ability: Effective Visual Impairment: No Limitations Hearing Ability: Normal Customer Service Driver Required: No Beliefs That Will Affect Care: None marital status: Current Living Situation: Spouse current occupational status: retired current occupation: used to have a [employer], [employer], 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 Review of Systems Review of Systems: All systems reviewed & are unremarkable except as noted in HPI & below Physical Exam Constitutional: WD/WN, vitals as above Respiratory: normal respiratory effort, lungs clear to auscultation Cardiovascular: RRR, no murmur, no edema Gastrointestinal (Abdomen): normal bowel sounds, soft, nontender, no hepatosplenomegaly Musculoskeletal: Left hip minimal int/ext rotation with groin pain NV intact distal to fracture site Skin: no rashes, warm and dry Psychiatric: A+Ox3, euthymic affect Results & Data Results & Data Vital Signs (Past 12 Hours) Vital Signs Pulse Resp BP Pulse Ox O2 Del Method 09/28/22 14:30 132/72 98 Room Air 09/28/22 14:00 131/92 96 Room Air 09/28/22 13:30 80 20 125/77 95 Room Air 09/28/22 13:33 86 07/14/23 13:08 84 18 95 09/28/22 11:42 75 18 115/78 99 Room Air Laboratory Results Abnormal lab results 09/28/22 09/28/22 Range/Units 12:19 12:19 RBC 3.96 L (4.20-5.40) M/uL Hgb 11.1 L (12.0-16.0) g/dl Hct 34.0 L (37.0-47.0) % Neut # (Auto) 8.07 H (1.40-6.50) K/uL [place] # (Auto) 1.03 H (0.11-0.59) K/uL Creatinine 0.46 L (0.6-1.2) mg/dl BUN/Creatinine Ratio 28.3 H (10-20) Glucose 120 H (70-99(Fasting)) mg/dl Diagnostic Findings XR chest 1V portable HISTORY: Left femur fracture. Preop. COMPARISON: None. FINDINGS: The lungs are clear. Cardiac silhouette is normal in size. No pleural effusions. No pneumothorax. IMPRESSION: No acute process. XR hip LT 2V w pelvis CLINICAL HISTORY: post op hip pain. Left hip pain. COMPARISON STUDY: Pelvis 09/20/2022. FINDINGS: Interval development of a periprosthetic fracture within the proximal left femur with avulsion of the lesser trochanter. This demonstrates up to 6 mm of distraction. No dislocation. The visualized pelvic bones are intact. There is moderate osteoarthritis again noted within the right hip. No fractures within the left hip prosthesis. There is mild inferior displacement of the left femoral prosthesis of approximately 1.5 cm compared to the prior study. This likely due to the periprosthetic fracture. IMPRESSION: Interval development of a periprosthetic fracture within the proximal left femur as described above. ADDENDUM AP view of the pelvis and crosstable lateral view of the left hip were submitted for review. Electronically signed by: Osmani Tejeda M.D. 09/28/2022 3:01 PM ADDENDUM END Medications Administered ER Medications Given: Dilaudid 0.5mg IV x2 Ondansetron 4mg IV Code Status & VTE Plan Code Status Full VTE Prophylaxis Plan VTE Prophylaxis will be ordered: Yes PG Care Time/CCT Total # of Minutes Spent Total Time Spent with Patient: Total time spent is greater than 50% in coordination of care (as documented) at patient's floor/unit and/or counseling patient: Coding Level of Care Code 33038 INT INP/OBS CARE 2/55MIN Diagnoses Morenita-prosthetic fracture around prosthetic hip M97.8XXA; Z96.649 Encounter type: initial encounter Lyme disease A69.20 Hypercholesterolemia E78.00 (1) Morenita-prosthetic fracture around prosthetic hip Encounter type: initial encounter Qualified Code(s): M97.8XXA - Periprosthetic fracture around other internal prosthetic joint, initial encounter; Z96.649 - Presence of unspecified artificial hip joint
[2022-09-28] MEDS ORDERED: HYDROmorphone INJ 0.5 MG/0.5 ML SYR IV PRN (16:26)
--- NOTE | 2022-09-28 17:16 | XRay Report ---
XR chest 1V portable HISTORY: Left femur fracture. Preop. COMPARISON: None. FINDINGS: The lungs are clear. Cardiac silhouette is normal in size. No pleural effusions. No pneumot horax. IMPRESSION: No acute process. ACT 112: Negative or not required by law. Electronically signed by: Osmani Tejeda M.D. 09/28/2022 5:15 PM
[2022-09-28] MEDS ORDERED: MAGNESIUM HYDROXIDE SUSP 30 ML UDC PO PRN (18:56)
[2022-09-28] MEDS ORDERED: ONDANSETRON INJ 2 MG/ML 2 ML VIAL IV PRN (18:56)
[2022-09-28] MEDS ORDERED: bisacodyL 10 MG SUPP PR PRN (18:56)
[2022-09-28] MEDS ORDERED: NALOXONE HCL 0.4 MG/1 ML VIAL/CARP IV PRN (18:56)
[2022-09-28] MEDS: ATORVASTATIN 20 MG TAB PO SCH (20:41)
[2022-09-28] MEDS: ACETAMINOPHEN 500 MG TAB PO SCH (20:41)
[2022-09-28] MEDS: DOCUSATE SODIUM/SENNA 50/8.6MG TAB PO SCH (20:42)
[2022-09-28] MEDS: DOXYCYCLINE HYCLATE 100 MG CAP PO SCH (20:43)
[2022-09-28] MEDS ORDERED: ARTIFICIAL TEARS OP PRN (21:00)
[2022-09-28] MEDS: MoRPHine SULFATE 2 MG/ML CARP IV PRN (21:42)
[2022-09-28] MEDS: LACTATED RINGER'S 1,000 ML IV SCH (23:57)
[2022-09-29] MEDS: MoRPHine SULFATE 2 MG/ML CARP IV PRN ×3 (02:03→20:49)
[2022-09-29] MEDS ORDERED: fentaNYL citrate PF 100 MCG/2 ML VIAL ONE ×2 (07:25→11:23)
[2022-09-29] MEDS ORDERED: MIDAZOLAM HCL 1 MG/ML 2ML VIAL ONE (07:25)
[2022-09-29] MEDS: ACETAMINOPHEN 500 MG TAB PO SCH ×3 (07:34→20:59)
[2022-09-29] MEDS: DOXYCYCLINE HYCLATE 100 MG CAP PO SCH ×2 (07:34→21:00)
[2022-09-29] MEDS: LACTATED RINGER'S 1,000 ML IV SCH ×2 (07:34→16:07)
--- NOTE | 2022-09-29 07:55 | Anesthesiology Consultation ---
Date of Service September 29, 2022 Assessment & Plan Chart Review Chart Review: Acceptable Risk for Surgery and Patient NOT seen in Pre Admission Testing Consults Requested none ASA ASA3 Proposed Anesthesia Anesthesia Type: General Anesthesia Line Insertion: Arterial line History Surgery Operation Date: 09/29/22 07:30 Proposed Procedures p Revision Left Hip - Andrei Juarez DO s /ORIF of Periprosthetic Femur Fracture - Andrei Juarez DO Height/Weight Height: 5 ft 3 in Weight: 81.788 kg Allergies Allergy/AdvReac Type Severity Reaction Status Date / Time erythromycin base Allergy Intermediate Hives Verified 09/20/22 08:44 omeprazole [From Prilosec] AdvReac Intermediate Vomiting Verified 09/20/22 08:44 penicillin G AdvReac Mild ? GI Verified 09/20/22 08:44 symptoms Medications Home Medications Medication Instructions Recorded Confirmed Last Taken biotin 1 mg capsule 1 mg PO HS 06/09/18 09/20/22 09/06/22 10:00 multivitamin 1 cap PO HS 06/09/18 09/20/22 09/19/22 22:00 ascorbic acid (vitamin C) 500 mg 1 gm PO HS 01/05/19 09/20/22 09/19/22 22:00 tablet cholecalciferol (vitamin D3) 25 2,000 units PO HS 09/23/19 09/20/22 09/19/22 22:00 mcg (1,000 unit) capsule (Vitamin D3) cyanocobalamin (vitamin B-12) 2,000 mcg PO HS 09/23/19 09/20/22 09/19/22 22:00 2,000 mcg tablet cyclosporine 0.05 % eye drops in a 1 drp OPB BID 09/24/19 09/28/22 09/20/22 07:00 dropperette (Restasis) famotidine 20 mg tablet (Pepcid) 20 mg PO DAILY PRN Acid Reflux 02/28/22 09/20/22 Unknown diazepam 2 mg tablet 1 mg PO BID PRN anxiety #10 tabs 07/27/22 09/28/22 Unknown atorvastatin 20 mg tablet (Lipitor) 20 mg PO HS 08/16/22 09/28/22 09/19/22 22:00 doxycycline hyclate 100 mg capsule 100 mg PO BID 10 days #20 caps 09/17/22 09/28/22 Unknown acetaminophen 500 mg tablet 1,000 mg PO Q8 post op pain 09/21/22 Unknown (Tylenol Extra Strength) control 30 days #180 tabs aspirin 81 mg tablet,delayed 81 mg PO BID DVT prophylaxis 30 09/21/22 Unknown release days #60 tabs diclofenac sodium 75 mg 75 mg PO BID post op pain and 09/21/22 09/28/22 Unknown tablet,delayed release inflammation relief 30 days #60 tabs oxycodone 5 mg tablet 5 - 10 mg PO Q4H PRN Post op pain 09/21/22 09/28/22 Unknown control #28 tabs Active Medications Generic Name Dose Route Start Last Admin Trade Name Freq PRN Reason Stop Dose Admin Acetaminophen 1,000 mg 09/28/22 21:00 09/29/22 07:34 Acetaminophen 500 Mg Tab PO 10/28/22 20:59 1,000 mg TID RISSA Administration Atorvastatin Calcium 20 mg 09/28/22 21:00 09/28/22 20:41 Atorvastatin 20 Mg Tab PO 10/28/22 20:59 20 mg HS RISSA Administration Doxycycline Hyclate 100 mg 09/28/22 21:00 09/29/22 07:34 Doxycycline Hyclate 100 Mg Cap PO 10/08/22 20:59 100 mg BID RISSA Administration Lactated Ringer's 1,000 mls @ 125 mls/hr 09/29/22 00:00 09/29/22 07:34 Lr IV 10/29/22 00:00 125 mls/hr .Q8H RISSA Administration Morphine Sulfate 2 mg 09/28/22 18:56 09/29/22 06:42 Morphine Sulfate 2 Mg/Ml Carp IV 10/12/22 18:55 2 mg Q3H PRN Administration Pain (1,2,3,4,5) & Pre PT Senna/Docusate Sodium 2 tab 09/28/22 21:00 09/28/22 20:42 Docusate Sodium/Senna 50/8.6mg Tab PO 10/28/22 20:59 2 tab HS RISSA Administration Past Medical History Medical History 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 Chronic low back pain without sciatica Generalized anxiety disorder GERD without esophagitis History of basal cell cancer Hypercholesterolemia IBS (irritable bowel syndrome) Osteoporosis Prediabetes Per records, patient denies Rosacea Exercise / Class Metabolic Activity III < 4 Walking/Shop/Light housework Past Family History Family History Mother Arthritis Father Arthritis Diabetes Prostate cancer Brother FH: CABG (coronary artery bypass surgery) Coronary heart disease Diabetes Prostate cancer Vasomotor rhinitis Other Myocardial infarction Denies family history of Ovarian cancer Breast cancer Colorectal cancer Past Surgical History Surgical History History of arthroscopy R/L meniscus repair History of cataract surgery R/L (+ subsequent "laser") History of colonoscopy Colonoscopy (05/16/22): MAC at [facility] History of dilatation and curettage History of esophagogastroduodenoscopy (EGD) History of laparoscopy History of tooth extraction x1 with dental implant Status post epidural steroid injection Past Anesthesia History No Hx of Anesthesia Complications and No Family Hx of Anesthesia Complications History of PONV No Hx of PONV and No Hx of Motion Sickness Social History Smoking Status: Never smoker Do You Dip or Chew Tobacco: No Hx Alcohol Use: Yes Alcohol type: wine alcohol intake frequency: a few times a month Hx Substance Use: No substance use type: does not use Physical Exam Vital Signs Last Vital Signs Temp 36.9 C 09/28/22 21:32 Pulse 82 09/28/22 21:32 Resp 18 09/28/22 21:32 BP 130/73 09/28/22 21:32 Pulse Ox 96 09/29/22 03:21 O2 Del Method Room Air 09/29/22 03:21 Testing Laboratory Results 09/28/22 12:19 09/28/22 12:19 Blood Type A Positive 09/28/22 19:10 Antibody Screen NEGATIVE 09/28/22 19:10 Electrocardiogram Date: 09/28/22 Findings: + NSR @ (@ 71;low voltage QRS) Chest X-Ray Date: 09/28/22 Findings: + NAD
[2022-09-29] MEDS ORDERED: SODIUM CHLORIDE 0.9% 250 ML IV PRN (08:02)
--- NOTE | 2022-09-29 08:13 | Hospitalist Progress Note ---
Date of Service September 29, 2022 Assessment & Plan (1) Morenita-prosthetic fracture around prosthetic hip: Plan: Recent hip repair with Dr Mahajan on 09/20 and was discharged home with home health and sustained periprosthetic fracture of the LEFT hip NPO on admission, IVF, Orthopedics consulted s/p p Open Reduction and Internal Fixation Left Hip Periprosthetic Fracture - Andrei Juarez, DO EBL 150cc Hgb dropped from 11.1--> 9.7 prior to surgery, suspect some bleeding from morenita- prosthetic fracture on aspirin for DVT prophyalxis as well as some aspect of dilution as has been on IVF since admission Monitor CBC on repeat/need for transfusion if needed Pain control/antiemetics as needed Bowel regimen (last BM reported yesterday morning, 09/28 prior to incident) PT/OT consults - did discuss possible rehab. she is hopeful for return home but will see how she evals go prior to decision making. Discussed likely inpatient until Saturday at the earliest but will monitor DVT proph: ASA 81mg BID Monitor labs on repeat (2) Lyme disease: Plan: Finish course of doxycycline previously prescribed for rash on leg, finish date 09/29 (3) Hypercholesterolemia: Plan: Continue atorvastatin Plan continued inpatient stay monitor labs on repeat PT/OT consults pending updated family at bedside in room afternoon 09/29 Admission and Anticipated Discharge Date Admission Date: September 28, 2022 Supervising Physician Co-Signing Physician Notes The patient was not seen by me. The chart was reviewed. Case discussed with MARIA ESTHER Mendoza. Agree with assessment and Subjective evaluated post-op, and family at bedside. not much of appetite, but no overt nausea, not feeling like she has to vomit. Not hungry at present but discussed when hungry to let us know and we can call for a tray. she is hopeful for return home at discharge, inquiring how long she will be inpatient. Discussed getting therapy evals in the morning but that likely would anticipate need for rehab but will see how she does. No chest pain or shortness of breath. Heavily medicated for pain and on 1L NC for comfort at present but lungs clear and SpO2 99%. No fevers/chills, abdominal pain. No BM today but had one yesterday morning. Currently with pettit in place, yellow urine present. Discussed removal in AM. Questions/concerns addressed at this time. Physical Exam Physical Exam: General WD/WN female sitting up in bed postop, family at bedside, NAD HEENT; head normocephalic, atraumatic, mm slightly dry, trachea midline Resp: CTA, slightly diminished int he bases, no w/c, on NC post-op CV: regular rate/rhythm, no significant m/r/g, trace pedal edema, calves nontender, pulses palpable GI: +BS, slight distension but soft/NT : pettit draining yellow urine MSK/Neuro: dressing/Silverlon to left hip, intact, ice pack in place, toes mobile, compartments soft, NVI, pulses palpable Psych: alert/oriented to person/place/time, cooperative with exam Results & Data Results & Data Vital Signs (Past 12 Hours) Vital Signs Temp Pulse Resp BP Pulse Ox Pulse Ox O2 Del Method 09/29/22 03:21 96 09/28/22 20:40 Room Air 09/28/22 20:40 37.1 C 71 18 126/82 96 Room Air 09/28/22 20:40 Room Air 09/28/22 20:40 96 09/28/22 21:32 36.9 C 82 18 130/73 96 Room Air O2 Del Method 09/29/22 03:21 Room Air 09/28/22 20:40 09/28/22 20:40 09/28/22 20:40 09/28/22 20:40 Room Air 09/28/22 21:32 Laboratory Results 09/28/22 09/28/22 09/28/22 Range/Units 19:10 14:41 12:19 WBC (4.8-10.8) K/ul RBC (4.20-5.40) M/uL Hgb (12.0-16.0) g/dl Hct (37.0-47.0) % MCV (80.0-100.0) fL MCH (25.0-34.0) pg MCHC (32.0-36.0) g/dL RDW Std Deviation (36.4-46.3) fL RDW Coeff of Shanae (11.5-14.5) % Plt Count (130-400) K/uL MPV (9.4-12.4) fL Immature Gran % (Auto) % Neut % (Auto) % Lymph % (Auto) % [place] % (Auto) % Eos % (Auto) % Baso % (Auto) % Neut # (Auto) (1.40-6.50) K/uL Lymph # (Auto) (1.2-3.4) K/uL [place] # (Auto) (0.11-0.59) K/uL Eos # (Auto) (0-0.50) K/uL Baso # (Auto) (0-0.2) K/uL Immature Gran # (Auto) (0.01-0.20) K/uL Sodium 138 (136-145) mmol/L Potassium 4.2 (3.5-5.1) mmol/L Chloride 104 (98-107) mmol/L Carbon Dioxide 29 (21-32) mmol/L Anion Gap 5 (3-11) BUN 13 (6-23) mg/dl Creatinine 0.46 L (0.6-1.2) mg/dl Est Cr Clr Drug Dosing 108.7 ml/min Est GFR ( Amer) 116.0 ml/min Est GFR (Non-Af Amer) 100.1 ml/min BUN/Creatinine Ratio 28.3 H (10-20) Glucose 120 H (70-99(Fasting)) mg/dl Calcium 9.4 (8.6-10.3) mg/dl Magnesium 1.8 (1.7-2.4) mg/dl SARS-CoV-2, RNA, NAAT NEGATIVE (NEGATIVE) Blood Type A Positive Antibody Screen NEGATIVE 09/28/22 Range/Units 12:19 WBC 10.79 (4.8-10.8) K/ul RBC 3.96 L (4.20-5.40) M/uL Hgb 11.1 L (12.0-16.0) g/dl Hct 34.0 L (37.0-47.0) % MCV 85.9 (80.0-100.0) fL MCH 28.0 (25.0-34.0) pg MCHC 32.6 (32.0-36.0) g/dL RDW Std Deviation 40.6 (36.4-46.3) fL RDW Coeff of Shanae 13.1 (11.5-14.5) % Plt Count 319 (130-400) K/uL MPV 9.4 (9.4-12.4) fL Immature Gran % (Auto) 1.5 % Neut % (Auto) 74.9 % Lymph % (Auto) 11.2 % [place] % (Auto) 9.5 % Eos % (Auto) 2.3 % Baso % (Auto) 0.6 % Neut # (Auto) 8.07 H (1.40-6.50) K/uL Lymph # (Auto) 1.21 (1.2-3.4) K/uL [place] # (Auto) 1.03 H (0.11-0.59) K/uL Eos # (Auto) 0.25 (0-0.50) K/uL Baso # (Auto) 0.07 (0-0.2) K/uL Immature Gran # (Auto) 0.16 (0.01-0.20) K/uL Sodium (136-145) mmol/L Potassium (3.5-5.1) mmol/L Chloride (98-107) mmol/L Carbon Dioxide (21-32) mmol/L Anion Gap (3-11) BUN (6-23) mg/dl Creatinine (0.6-1.2) mg/dl Est Cr Clr Drug Dosing ml/min Est GFR ( Amer) ml/min Est GFR (Non-Af Amer) ml/min BUN/Creatinine Ratio (10-20) Glucose (70-99(Fasting)) mg/dl Calcium (8.6-10.3) mg/dl Magnesium (1.7-2.4) mg/dl SARS-CoV-2, RNA, NAAT (NEGATIVE) Blood Type Antibody Screen Diagnostic Findings Hip/Pelvis X-Ray 09/28/22 12:03 XR hip LT 2V w pelvis CLINICAL HISTORY: post op hip pain. Left hip pain. COMPARISON STUDY: Pelvis 09/20/2022. FINDINGS: Interval development of a periprosthetic fracture within the proximal left femur with avulsion of the lesser trochanter. This demonstrates up to 6 mm of distraction. No dislocation. The visualized pelvic bones are intact. There is moderate osteoarthritis again noted within the right hip. No fractures within the left hip prosthesis. There is mild inferior displacement of the left femoral prosthesis of approximately 1.5 cm compared to the prior study. This likely due to the periprosthetic fracture. IMPRESSION: Interval development of a periprosthetic fracture within the proximal left femur as described above. ACT 112: Negative or not required by law. Electronically signed by: Osmani Tejeda M.D. 09/28/2022 2:18 PM Chest X-Ray 09/28/22 16:12 XR chest 1V portable HISTORY: Left femur fracture. Preop. COMPARISON: None. FINDINGS: The lungs are clear. Cardiac silhouette is normal in size. No pleural effusions. No pneumothorax. IMPRESSION: No acute process. ACT 112: Negative or not required by law. Electronically signed by: Osmani Tejeda M.D. 09/28/2022 5:15 PM PG Care Time/CCT Total # of Minutes Spent Total Time Spent with Patient: Total time spent is greater than 50% in coordination of care (as documented) at patient's floor/unit and/or counseling patient: Coding Level of Care Code 11679 SUB INP/OBS CARE 2/35MIN Diagnoses Morenita-prosthetic fracture around prosthetic hip M97.8XXA; Z96.649 Encounter type: initial encounter Lyme disease A69.20 Hypercholesterolemia E78.00 (1) Morenita-prosthetic fracture around prosthetic hip Encounter type: initial encounter Qualified Code(s): M97.8XXA - Periprosthetic fracture around other internal prosthetic joint, initial encounter; Z96.649 - Presence of unspecified artificial hip joint
[2022-09-29] MEDS ORDERED: PROPOFOL IV EMULSION 10 MG/ML 20 ML VIAL IV ONE (08:18)
[2022-09-29] MEDS ORDERED: ROCURONIUM BROMIDE 10 MG/ML 5 ML VIAL IV ONE (08:18)
[2022-09-29] MEDS ORDERED: ONDANSETRON INJ 2 MG/ML 2 ML VIAL ONE (08:19)
[2022-09-29] MEDS ORDERED: ACETAMINOPHEN 1000 MG/100 ML IV IV ONE (08:25)
[2022-09-29] MEDS ORDERED: FAMOTIDINE/PF 20 MG/2 ML VIAL IV ONE (08:26)
[2022-09-29] MEDS ORDERED: PHENYLEPHRINE HCL 10 MG/ML VIAL ONE (08:41)
[2022-09-29] MEDS ORDERED: SODIUM CHLORIDE 0.9% PF INJ 10 ML VIAL ONE (08:52)
[2022-09-29 09:00] LABS: Hemoglobin 9.7 g/dl (12.0-16.0); Mean Corpuscular Hemoglobin 27.5 pg (25.0-34.0); Mean Corpuscular Hgb Conc 32.3 g/dL (32.0-36.0); Mean Platelet Volume 9.2 fL (9.4-12.4); Platelet Count 280 K/uL (130-400); RDW Coefficient of Variation 13.2 % (11.5-14.5); RDW Standard Deviation 40.9 fL (36.4-46.3); Red Blood Count 3.53 M/uL (4.20-5.40); White Blood Count 9.28 K/ul (4.8-10.8)
--- NOTE | 2022-09-29 09:03 | History & Physical Bridge Note ---
Date of Service September 29, 2022 History & Physical Bridge Note I have examined the patient, reviewed the History & Physical and in the interval since the performance of the History & Physical I have noted the following changes of clinical significance: no changes noted. Met with the patient. I do lengthy discussion with her regarding revision of her left total hip arthroplasty with open reduction internal fixation for her periprosthetic femur fracture. Risk include but are not limited to: Infection, neurovascular injury, DVT, nonunion, malunion, leg length discrepancy, dislocation, and need for future surgery. After reviewing these she elected to proceed with surgical intervention and written consent was obtained.
--- NOTE | 2022-09-29 09:07 | Orthopedic Consultation ---
Date of Consultation September 29, 2022 Assessment & Plan (1) Morenita-prosthetic fracture around prosthetic hip: 72-year-old female with a periprosthetic left hip fracture N.p.o. Antibiotics on-call to the OR Pain control Bedrest Medical management Plan for revision left hip arthroplasty with open reduction internal fixation History of Present Illness Reason for Consultation: Periprosthetic left femur fracture Attending Physician: Lakhwinder Vale MD History of Present Illness 72-year-old female presenting to the emergency distal part met with a chief complaint of left hip pain and inability to ambulate. She recently underwent total hip arthroplasty approximately a week ago. She notes that several days after the procedure she felt a small pop in her left hip but continued to try to do her therapy and activities. Then yesterday she felt a shift in her hip and had immediate pain and difficulty trying to ambulate. In the emergency department radiographs were obtained demonstrating a periprosthetic left femur fracture with subsidence of the femoral component. The patient was admitted to medical service and orthopedics was consulted for operative management. Allergies Allergy/AdvReac Type Severity Reaction Status Date / Time erythromycin base Allergy Intermediate Hives Verified 09/20/22 08:44 omeprazole [From Prilosec] AdvReac Intermediate Vomiting Verified 09/20/22 08:44 penicillin G AdvReac Mild ? GI Verified 09/20/22 08:44 symptoms Home Medications Medication Instructions Recorded Confirmed Type biotin 1 mg capsule 1 mg PO HS 06/09/18 09/20/22 History multivitamin 1 cap PO HS 06/09/18 09/20/22 History ascorbic acid (vitamin C) 500 mg 1 gm PO HS 01/05/19 09/20/22 History tablet cholecalciferol (vitamin D3) 25 2,000 units PO HS 09/23/19 09/20/22 History mcg (1,000 unit) capsule (Vitamin D3) cyanocobalamin (vitamin B-12) 2,000 mcg PO HS 09/23/19 09/20/22 History 2,000 mcg tablet cyclosporine 0.05 % eye drops in a 1 drp OPB BID 09/24/19 09/28/22 History dropperette (Restasis) famotidine 20 mg tablet (Pepcid) 20 mg PO DAILY PRN Acid Reflux 02/28/22 09/20/22 History diazepam 2 mg tablet 1 mg PO BID PRN anxiety #10 tabs 07/27/22 09/28/22 Rx atorvastatin 20 mg tablet (Lipitor) 20 mg PO HS 08/16/22 09/28/22 History doxycycline hyclate 100 mg capsule 100 mg PO BID 10 days #20 caps 09/17/22 09/28/22 Rx acetaminophen 500 mg tablet 1,000 mg PO Q8 post op pain 09/21/22 Rx (Tylenol Extra Strength) control 30 days #180 tabs aspirin 81 mg tablet,delayed 81 mg PO BID DVT prophylaxis 30 09/21/22 Rx release days #60 tabs diclofenac sodium 75 mg 75 mg PO BID post op pain and 09/21/22 09/28/22 Rx tablet,delayed release inflammation relief 30 days #60 tabs oxycodone 5 mg tablet 5 - 10 mg PO Q4H PRN Post op pain 09/21/22 09/28/22 Rx control #28 tabs Patient History Medical History 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 Chronic low back pain without sciatica Generalized anxiety disorder GERD without esophagitis History of basal cell cancer Hypercholesterolemia IBS (irritable bowel syndrome) Osteoporosis Prediabetes Per records, patient denies Rosacea Surgical History History of arthroscopy R/L meniscus repair History of cataract surgery R/L (+ subsequent "laser") History of colonoscopy Colonoscopy (05/16/22): MAC at [facility] History of dilatation and curettage History of esophagogastroduodenoscopy (EGD) History of laparoscopy History of tooth extraction x1 with dental implant Status post epidural steroid injection Family History Mother Arthritis Father Arthritis Diabetes Prostate cancer Brother FH: CABG (coronary artery bypass surgery) Coronary heart disease Diabetes Prostate cancer Vasomotor rhinitis Other Myocardial infarction Denies family history of Ovarian cancer Breast cancer Colorectal cancer Social History Smoking Status: Never smoker Second Hand Exposure: No; Do You Dip or Chew Tobacco: No; Tobacco Cessation Education Requested by Patient: No Hx Alcohol Use: Yes Alcohol type: wine Hx Substance Use: No Preferred Language: Grenadian Communication Ability: Effective Visual Impairment: No Limitations Hearing Ability: Normal Business Systems Advisor Required: No Beliefs That Will Affect Care: None marital status: Current Living Situation: Spouse current occupational status: retired 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 Physical Exam Constitutional: General: No acute distress, alert and oriented person place and time Musculoskeletal: Left lower extremity Posterior lateral hip incision, dressing in place. Mild bruising and ecchymosis over the thigh. Thigh is soft and compressible Leg is shortened Pain with logroll and unable to straight leg raise. Sensation intact to light touch saphenous/superficial peroneal nerve/deep peroneal nerve/tibial/sural nerve distributions Fires tibialis anterior/extensor houses longus/gastrocsoleus complex Palpable dorsalis pedis and posterior tibial pulses with brisk capillary refill Results & Data Vital Signs (Past 12 Hours) Vital Signs Temp Pulse Resp BP Pulse Ox Pulse Ox O2 Del Method 09/29/22 08:00 Room Air 09/29/22 08:11 37.2 C 83 16 129/74 95 Room Air 09/29/22 03:21 96 09/28/22 21:32 36.9 C 82 18 130/73 96 Room Air O2 Del Method 09/29/22 08:00 09/29/22 08:11 09/29/22 03:21 Room Air 09/28/22 21:32 Diagnostic Findings Left hip radiographs demonstrate left total hip arthroplasty with periprosthetic left proximal femur fracture there appears to be gross subsidence of the femoral component. (1) Morenita-prosthetic fracture around prosthetic hip Encounter type: initial encounter Qualified Code(s): M97.8XXA - Periprosthetic fracture around other internal prosthetic joint, initial encounter; Z96.649 - Presence of unspecified artificial hip joint
[2022-09-29 09:15] LABS: BUN Creatinine Ratio 21.7 (10-20); Calcium 8.7 mg/dl (8.6-10.3); Creatinine Clr Calc Pharmacy 113.6 ml/min; Est GFR (Non-African American) 100.1 ml/min; Potassium 4.1 mmol/L (3.5-5.1)
[2022-09-29] MEDS ORDERED: HYDROmorphone INJ 2 MG/ML SYR/VIAL ONE (09:50)
[2022-09-29] MEDS ORDERED: ePHEDrine sulfate 50 MG/ML AMP ONE (10:03)
[2022-09-29] MEDS ORDERED: KETOROLAC 30 MG/ML VIAL ONE (11:03)
[2022-09-29] MEDS ORDERED: SUGAMMADEX SODIUM 200 MG/2 ML VIAL IV ONE (11:04)
--- NOTE | 2022-09-29 11:06 | XRay Report ---
XR hip LT 1V CLINICAL HISTORY: REVISION PERIPROSTHETIC LEFT HIP fracture COMPARISON STUDY: Pelvis and left hip 09/28/2022. FINDINGS: Status post revision of the left total hip arthroplasty with a cerclage wire transfixing th e proximal femoral periprosthetic fracture. The hardware appears intact. Alignment is near-anatomic. No dislocation. IMPRESSION: Left hip postoperative changes as described above. ACT 112: Negative or not required by law. Electronically signed by: Osmani Tejeda M.D. 09/29/2022 11:05 AM
[2022-09-29] MEDS ORDERED: NALOXONE HCL 0.4 MG/1 ML VIAL/CARP IV PRN (11:20)
[2022-09-29] MEDS ORDERED: FLUMAZENIL 0.1 MG/1 ML 10 ML VIAL IV PRN (11:20)
[2022-09-29] MEDS ORDERED: ePHEDrine sulfate 50 MG/ML AMP IV PRN (11:20)
[2022-09-29] MEDS ORDERED: ONDANSETRON INJ 2 MG/ML 2 ML VIAL IV PRN (11:20)
[2022-09-29] MEDS ORDERED: LABETALOL HCL IV 5 MG/ML 20ML IV PRN (11:20)
[2022-09-29] MEDS ORDERED: PROMETHAZINE HCL 12.5 MG in SODIUM CHLORIDE 0.9% 50 ML IV PRN (11:20)
[2022-09-29] MEDS ORDERED: fentaNYL citrate PF 100 MCG/2 ML VIAL IV PRN (11:20)
[2022-09-29] MEDS ORDERED: ATROPINE SULFATE 0.1 MG/ML 10ML SYR IV PRN (11:20)
[2022-09-29] MEDS ORDERED: HYDROmorphone INJ 1 MG/ML SYRINGE IV PRN (11:20)
--- NOTE | 2022-09-29 11:40 | Post Operative Brief Note ---
Immediate Post Op Note v1 Date of Surgery September 29, 2022 Pre & Post Diagnosis Operation Date: 09/29/22 07:30 Pre-Op Diagnosis: LEFT PERIPROSTHETIC HIP FRACTURE Post-Op Diagnosis: LEFT PERIPROSTHETIC HIP FRACTURE I identified the patient and participated in the time-out.: Yes Procedure Operation Date: 09/29/22 07:30 Actual Procedures p Open Reduction and Internal Fixation Left Hip Periprosthetic Fracture - Andrei Juarez DO Surgeon Andrei Juarez DO Metal Room Dental Technician none Estimated Blood Loss 150 Findings Consistent with Post-Op Diagnosis see dictation Drains Jamil Catheter and Hemovac Drain Complications none
--- NOTE | 2022-09-29 11:45 | Operative Report ---
Post Operative Report Pre & Post Diagnosis Operation Date: 09/29/22 07:30 Pre-Op Diagnosis: LEFT PERIPROSTHETIC HIP FRACTURE Post-Op Diagnosis: LEFT PERIPROSTHETIC HIP FRACTURE I identified the patient and participated in the time-out.: Yes Procedure Operation Date: 09/29/22 07:30 Actual Procedures p Open Reduction and Internal Fixation Left Hip Periprosthetic Fracture - Andrei Juarez DO Surgeon Andrei Juarez DO Strip Deburrer none Estimated Blood Loss 150 Findings Consistent with Post-Op Diagnosis see dication Specimens none Drains hemovac Complications none Indications 72-year-old female presenting to the emergency department after feeling a pop and a shift in her left hip yesterday. She had a total hip arthroplasty approximately 1 week ago. In the emergency department radiographs were obtained demonstrating displaced periprosthetic left proximal femur fracture. Patient was admitted to medical service and orthopedics was consulted for operative management. I met with the patient preoperatively and had a lengthy discussion with her regarding risk benefits potential complications of revision left total hip arthroplasty with open reduction internal fixation. After reviewing risk benefits and complication she elected to proceed with surgical intervention and written consent was obtained. Description of Procedure Implants: Coinfloor zoroastrian modular hip system distal stem 155 mm x 16 mm, proximal body 19 mm +0 height with V40 taper, Biolox delta ceramic V40 femoral head 32 mm outside diameter with +0 mm offset Procedure: Patient was appropriately identified in the preoperative holding area and the left lower extremity was marked. She was then taken to the operative suite where she received antibiotics per protocol as well as general anesthesia. She was then positioned in a lateral decubitus position with the Stolberg hip positioners. Previous dressings were then removed. The patient was then prepped and draped in the standard orthopedic fashion a timeout was then performed. Scalpel was used to open the previous incision. Any residual sutures were then removed. Dissection was carried out down to the fascial layer which was then opened using scissors to remove any residual sutures. Fracture hematoma was encountered. Charnley retractor was then placed. The femoral component was noted to be rotated and grossly subsided. Femoral component was able to be removed by hand. Curette and rongeur was then used to remove any residual fracture hematoma wound was then copiously irrigated. Using co mbination of rotation the fracture fragment was then provisionally reduced and held in position with a bone hook. A cerclage cable was then passed below the level of the lesser trochanter around the fracture fragment and then provisionally tightened. Attention was then turned to preparation of the femoral canal starting with a 13 mm reamer the canal was sequentially reamed up to a size 16 mm reamer to accommodate a 16 mm stem. Standard length was selected. A 16 mm x 155 mm distal stem was then inserted and noted to have excellent fit. Proximal body was then overreamed to 19 mm. Trialing was then performed with a +0 height proximal body. A trial 32 mm +0 femoral head was then placed. The hip was then successfully reduced. Leg lengths were noted to be satisfactory as well as stability in flexion extension with internal and external rotation. A flat plate radiograph was then obtained demonstrating satisfactory reduction of the fracture and positioning of the implant. The hip was then successfully dislocated. Anteversion was then marked on the calcar using electrocautery. Trial femoral head and proximal body were then removed. The hip was then copiously irrigated. A 19 mm +0 height proximal body was then inserted onto the distal stem anteversion was positioned using the previously marked anteversion. Screw was provisionally tightened down to secure the 2 modular pieces together and torqued using a torque wrench. Trunnion was then copiously irrigated and dried and a 32 mm +0 mm ceramic head was then impacted onto the trunnion with several brisk taps. Acetabulum was then copiously irrigated and checked for any interposing soft tissue. The hip was then successfully relocated. Once again range of motion and stability as well as leg lengths were all assessed and noted to be satisfactory. Wound was then copiously irrigated using dilute Betadine solution followed by normal saline solution. 1-0 Ethibond was then used to close the deep capsular closure. Ch arnley retractor was then removed and a deep Hemovac was then placed. Deep fascial layer was then closed using a combination of 1-0 Ethibond suture followed by running oh strata fix suture. Subcutaneous tissues were then copiously irrigated and dried. Deep subcutaneous closure was performed using 2- 0 Vicryl and then 2 oh strata fix was used to close the superficial subcutaneous tissues. Howie were then used for the skin. A 3-0 nylon suture was then used to tighten the Hemovac. A sterile Silverlon dressing was then placed overlying the incision and a Tegaderm was placed over the Hemovac. Patient tolerated the procedure well and was taken the recovery room in hemodynamically stable condition. I attest to the content of the Intraoperative Record and any orders documented therein. Any exceptions are noted below.
[2022-09-29] MEDS ORDERED: ceFAZolin 330 MG/ML 1 GM VIAL ONE (12:03)
--- NOTE | 2022-09-29 12:20 | XRay Report ---
AP AND CROSSTABLE LATERAL LEFT HIP History: Left total hip revision. Periprosthetic fracture. Postop. FINDINGS: The patient is status post a left total hip arthroplasty. The hardware is intact. There is a cerclage wires transfixing the periprostatic fracture the proximal left femur. The alignment appear s anatomic.. Skin alvarado are in place. IMPRESSION: Left total hip arthroplasty revision. No evidence for hardware complication. ACT 112: Negative or not required by law. Electronically signed by: Osmani Tejeda M.D. 09/29/2022 12:19 PM
--- NOTE | 2022-09-29 12:25 | Anesthesiology Progress Note ---
Date of Service September 29, 2022 Anesthesia Post Procedure Vital Signs Vital Signs: Temp Pulse Pulse Pulse Resp BP BP 09/29/22 12:15 36.5 C 86 20 129/69 09/29/22 12:05 89 12 148/93 H 09/29/22 11:55 83 14 110/76 09/29/22 11:47 36.3 C L 82 16 123/69 09/29/22 08:00 09/29/22 08:11 37.2 C 83 16 129/74 09/29/22 03:21 09/28/22 20:40 09/28/22 20:40 37.1 C 71 18 126/82 09/28/22 20:40 09/28/22 20:40 09/28/22 21:32 36.9 C 82 18 130/73 09/28/22 18:40 37.1 C 71 18 126/82 09/28/22 18:38 74 16 109/61 09/28/22 17:00 76 16 109/61 09/28/22 14:30 132/72 09/28/22 14:00 131/92 09/28/22 13:30 80 20 125/77 09/28/22 13:33 86 09/28/22 13:08 84 18 Pulse Ox Pulse Ox O2 Del Method O2 Del Method O2 Flow Rate 09/29/22 12:15 97 Nasal Cannula 2 09/29/22 12:05 99 Oxymask 4 09/29/22 11:55 97 Oxymask 6 09/29/22 11:47 99 Oxymask 8 09/29/22 08:00 Room Air 09/29/22 08:11 95 Room Air 09/29/22 03:21 96 Room Air 09/28/22 20:40 Room Air 09/28/22 20:40 96 Room Air 09/28/22 20:40 Room Air 09/28/22 20:40 96 Room Air 09/28/22 21:32 96 Room Air 09/28/22 18:40 96 Room Air 09/28/22 18:38 99 Room Air 09/28/22 17:00 94 Room Air 09/28/22 14:30 98 Room Air 09/28/22 14:00 96 Room Air 09/28/22 13:30 95 Room Air 09/28/22 13:33 09/28/22 13:08 95 Pain Intensity Left Hip: Pain Intensity: 2 Transfer of Care Handoff Completed per policy Notes Mental Status: alert / awake / arousable Patient Amnestic to Procedure: Yes Nausea / Vomiting: adequately controlled Pain: adequately controlled Airway Patency, RR, SpO2: stable & adequate BP & HR: stable & adequate Hydration State: stable & adequate Anesthetic Complications: no major complications apparent
[2022-09-29] MEDS: SODIUM CHLORIDE 0.9% 1000ML 1,000 ML IV SCH (12:55)
--- NOTE | 2022-09-29 14:14 | Electrocardiogram Report ---
Test Reason : Blood Pressure : / mmHG Vent. Rate : 071 BPM Atrial Rate : 071 BPM P-R Int : 144 ms QRS Dur : 070 ms QT Int : 396 ms P-R-T Axes : 039 026 -02 degrees QTc Int : 430 ms Normal sinus rhythm Low voltage QRS Borderline ECG When compared with ECG of 24-SEP-2019 20:33, No significant change was found Confirmed by Binh Delgado ([id number]) on 09/29/2022 2:13:38 PM Referred By: REFERRED SELF Confirmed By:Binh Delgado
[2022-09-29] MEDS ORDERED: POLYETHYLENE (MIRALAX) 17 GM PACK PO PRN (14:35)
[2022-09-29] MEDS: ceFAZolin 2000MG 2,000 MG/15 ML SYR IV SCH (17:03)
[2022-09-29] MEDS: ASPIRIN 81 MG ECTAB PO SCH (21:00)
[2022-09-29] MEDS: ATORVASTATIN 20 MG TAB PO SCH (21:00)
[2022-09-29] MEDS: DOCUSATE SODIUM/SENNA 50/8.6MG TAB PO SCH (21:00)
[2022-09-30] MEDS: ceFAZolin 2000MG 2,000 MG/15 ML SYR IV SCH (01:41)
[2022-09-30] MEDS: MoRPHine SULFATE 2 MG/ML CARP IV PRN ×2 (02:20→03:02)
[2022-09-30] MEDS: SODIUM CHLORIDE 0.9% 1000ML 1,000 ML IV SCH (02:33)
[2022-09-30] MEDS ORDERED: diazePAM 2 MG TABLET PO ONE (04:17)
[2022-09-30] MEDS ORDERED: diazePAM 2 MG TABLET PO SCH (04:17)
[2022-09-30] MEDS: MoRPHine SULFATE 4 MG/ML 1 ML CARP\\VIAL IV PRN ×3 (06:48→14:45)
[2022-09-30] MEDS: ACETAMINOPHEN 500 MG TAB PO SCH ×3 (07:40→21:36)
[2022-09-30] MEDS: ASPIRIN 81 MG ECTAB PO SCH ×2 (07:40→20:04)
[2022-09-30] MEDS: DOXYCYCLINE HYCLATE 100 MG CAP PO SCH ×2 (07:40→20:05)
--- NOTE | 2022-09-30 08:32 | Hospitalist Progress Note ---
Date of Service September 30, 2022 Assessment & Plan (1) Morenita-prosthetic fracture around prosthetic hip: Plan: Recent hip repair with Dr Mahajan on 09/20 and was discharged home with home health and sustained periprosthetic fracture of the LEFT hip Orthopedics consulted POD#1 s/p p Open Reduction and Internal Fixation Left Hip Periprosthetic Fracture - Andrei Juarez, DO EBL 150cc Hgb dropped from 11.1--> 9.7 prior to surgery, suspect some bleeding from morenita-prosthetic fracture on aspirin for DVT prophyalxis as well as some aspect of dilution as has been on IVF since admission Repeat hgb drop to 8.5 on continuous fluids, not unexpected. No CP/SOB reported, VSS WBC elevation likely from stress of surgery/steroids, patient remains afebrile Pain control/antiemetics as needed Added PO Oxycodone 1-2 tablets as needed, morphine available for breakthrough Bowel regimen (last BM reported yesterday morning, 09/28 prior to incident) DVT proph: ASA 81mg BID Monitor labs on repeat, PT/OT evals. Likely will need some degree of rehab as discussed with patient but she is hopeful for return home when able Will follow up on BMP once resulted-- still pending. UOP acceptable (2) Lyme disease: Plan: Finish course of doxycycline previously prescribed for rash on leg, finish date 09/29 (3) Hypercholesterolemia: Plan: Continue atorvastatin Plan continued inpatient stay, pain control/bowel regimen monitor labs on repeat PT/OT consults pending updated family at bedside in room afternoon 09/29 Admission and Anticipated Discharge Date Admission Date: September 28, 2022 Supervising Physician Co-Signing Physician Notes The patient was not seen by me. The chart was reviewed. Case discussed with MARIA ESTHER Mendoza. Agree with assessment and plan Subjective Eval this morning, sitting up in chair. Able to stand to have pillow placed under her for comfort in the chair. Got morphine for pain, not due and no PO ordered. Discussed will order PO Oxycodone and monitor response and keep morphine for breakthrough. Reports some suprapubic discomfort and to have pettit removed this morning. She is inquiring about when therapy will be around to work with her-- should be this morning and will monitor. No fever/chills, chest pain shortness of breath nausea or vomiting. Questions/concerns addressed at this time. Physical Exam Physical Exam: General WD/WN female sitting up in chair, mildly uncomfortable appearing but no acute distress, repositioned with pillow for comfort HEENT; head normocephalic, atraumatic, mm improved, trachea midline Resp: CTA, slightly diminished int he bases, no w/c, on room air CV: regular rate/rhythm, no significant m/r/g, trace pedal edema, calves nontender, pulses palpable GI: +BS, slight distension but soft/NT : pettit draining yellow urine, to be removed this morning MSK/Neuro: dressing/Silverlon to left hip intact, some ecchymosis/bruising surrounding dressing, some thigh edema, no calf tenderness, pulses palpable, NVI intact Psych: alert/oriented to person/place/time, cooperative with exam Results & Data Results & Data Vital Signs (Past 12 Hours) Vital Signs Temp Pulse Resp BP Pulse Ox O2 Del Method 09/30/22 08:00 Room Air 09/30/22 07:29 37.3 C 97 H 16 110/67 96 Room Air 09/30/22 03:00 37.2 C 92 H 18 115/74 97 Room Air 09/29/22 23:08 37.5 C 86 18 105/75 98 Room Air Laboratory Results 09/30/22 09/30/22 Range/Units 08:24 08:24 WBC 15.50 H (4.8-10.8) K/ul RBC 3.08 L (4.20-5.40) M/uL Hgb 8.5 L (12.0-16.0) g/dl Hct 25.8 L (37.0-47.0) % MCV 83.8 (80.0-100.0) fL MCH 27.6 (25.0-34.0) pg MCHC 32.9 (32.0-36.0) g/dL RDW Std Deviation 40.8 (36.4-46.3) fL RDW Coeff of Shanae 13.4 (11.5-14.5) % Plt Count 324 (130-400) K/uL MPV 9.4 (9.4-12.4) fL Immature Gran % (Auto) 0.7 % Neut % (Auto) 81.5 % Lymph % (Auto) 7.5 % [place] % (Auto) 8.6 % Eos % (Auto) 1.2 % Baso % (Auto) 0.5 % Neut # (Auto) 12.64 H (1.40-6.50) K/uL Lymph # (Auto) 1.16 L (1.2-3.4) K/uL [place] # (Auto) 1.33 H (0.11-0.59) K/uL Eos # (Auto) 0.19 (0-0.50) K/uL Baso # (Auto) 0.07 (0-0.2) K/uL Immature Gran # (Auto) 0.11 (0.01-0.20) K/uL Sodium Pending Potassium Pending Chloride Pending Carbon Dioxide Pending Anion Gap Pending BUN Pending Creatinine Pending Est Cr Clr Drug Dosing Pending Est GFR ( Amer) Pending Est GFR (Non-Af Amer) Pending BUN/Creatinine Ratio Pending Glucose Pending Calcium Pending Magnesium Pending Diagnostic Findings Hip X-Ray 09/29/22 07:30 XR hip LT 1V CLINICAL HISTORY: REVISION PERIPROSTHETIC LEFT HIP fracture COMPARISON STUDY: Pelvis and left hip 09/28/2022. FINDINGS: Status post revision of the left total hip arthroplasty with a cerclage wire transfixing the proximal femoral periprosthetic fracture. The hardware appears intact. Alignment is near-anatomic. No dislocation. IMPRESSION: Left hip postoperative changes as described above. ACT 112: Negative or not required by law. Electronically signed by: Osmani Tejeda M.D. 09/29/2022 11:05 AM Hip X-Ray 09/29/22 11:41 AP AND CROSSTABLE LATERAL LEFT HIP History: Left total hip revision. Periprosthetic fracture. Postop. FINDINGS: The patient is status post a left total hip arthroplasty. The hardware is intact. There is a cerclage wires transfixing the periprostatic fracture the proximal left femur. The alignment appears anatomic.. Skin alvarado are in place. IMPRESSION: Left total hip arthroplasty revision. No evidence for hardware complication. ACT 112: Negative or not required by law. Electronically signed by: Osmani Tejeda M.D. 09/29/2022 12:19 PM PG Care Time/CCT Total # of Minutes Spent Total Time Spent with Patient: Total time spent is greater than 50% in coordination of care (as documented) at patient's floor/unit and/or counseling patient: Coding Level of Care Code 31698 SUB INP/OBS CARE 350MIN Diagnoses Morenita-prosthetic fracture around prosthetic hip M97.8XXA; Z96.649 Encounter type: initial encounter Lyme disease A69.20 Hypercholesterolemia E78.00 (1) Morenita-prosthetic fracture around prosthetic hip Encounter type: initial encounter Qualified Code(s): M97.8XXA - Periprosthetic fracture around other internal prosthetic joint, initial enc ounter; Z96.649 - Presence of unspecified artificial hip joint
[2022-09-30 09:09] LABS: Basophils # (auto) 0.07 K/uL (0-0.2); Basophils % (auto) 0.5 %; Eosinophils # (auto) 0.19 K/uL (0-0.50); Eosinophils % (auto) 1.2 %; Hematocrit (blood only) 25.8 % (37.0-47.0); Hemoglobin 8.5 g/dl (12.0-16.0); Immature Granulocytes # (auto) 0.11 K/uL (0.01-0.20); Immature Granulocytes % (auto) 0.7 %; Lymphocytes # (auto) 1.16 K/uL (1.2-3.4); Lymphocytes % (auto) 7.5 %; Mean Corpuscular Hemoglobin 27.6 pg (25.0-34.0); Mean Corpuscular Hgb Conc 32.9 g/dL (32.0-36.0); Mean Corpuscular Volume 83.8 fL (80.0-100.0); Mean Platelet Volume 9.4 fL (9.4-12.4); Monocytes # (auto) 1.33 K/uL (0.11-0.59); Monocytes % (auto) 8.6 %; Neutrophils # (auto) 12.64 K/uL (1.40-6.50); Neutrophils % (auto) 81.5 %; Platelet Count 324 K/uL (130-400); RDW Coefficient of Variation 13.4 % (11.5-14.5); RDW Standard Deviation 40.8 fL (36.4-46.3); Red Blood Count 3.08 M/uL (4.20-5.40)
[2022-09-30 09:34] LABS: BUN Creatinine Ratio 22.9 (10-20); Calcium 8.5 mg/dl (8.6-10.3); Creatinine Clr Calc Pharmacy 108.9 ml/min; Est GFR (African American) 114.4 ml/min; Est GFR (Non-African American) 98.7 ml/min; Magnesium 1.6 mg/dl (1.7-2.4); Potassium 4.2 mmol/L (3.5-5.1)
[2022-09-30] MEDS: oxyCODONE HCL IR 5 MG TAB (IMMEDIATE RELEASE) PO PRN ×2 (09:45→18:46)
--- NOTE | 2022-09-30 09:45 | Orthopedic Progress Note ---
Date of Service September 30, 2022 Assessment & Plan (1) Morenita-prosthetic fracture around prosthetic hip: Plan: 72 yo female stable POD #1 s/p left NICOLE revision femoral stem/head secondary to periprosthetic femur fracture 1. Med management 2. DVT prophylaxis- ASA, SCDs 3. PT/OT 4. D/C planning- home w/ HH vs rehab/SNF. Pt to begin PT/OT today. I told her likely d/c tomorrow pending her progress and her/family decision regarding d/c home vs rehab. Ortho to sign off. Pt may follow-up with Dr Juarez ~ 10-14 days, call [phone] for apptor with concerns/questions. D/C instructions placed in chart. Admission and Anticipated Discharge Date Admission Date: September 28, 2022 Subjective Pt resting in chair, appears comfortable but anxious, denies complaints Physical Exam Physical Exam: Silverlon dressing in place left hip, moderate swelling left thigh, knee and ankle mobile, mild calf swelling and tenderness Results & Data Vital Signs (Past 12 Hours) Vital Signs Temp Pulse Resp BP Pulse Ox O2 Del Method 09/30/22 08:00 Room Air 09/30/22 07:29 37.3 C 97 H 16 110/67 96 Room Air 09/30/22 03:00 37.2 C 92 H 18 115/74 97 Room Air 09/29/22 23:08 37.5 C 86 18 105/75 98 Room Air Laboratory Results 09/30/22 09/30/22 Range/Units 08:24 08:24 WBC 15.50 H (4.8-10.8) K/ul RBC 3.08 L (4.20-5.40) M/uL Hgb 8.5 L (12.0-16.0) g/dl Hct 25.8 L (37.0-47.0) % MCV 83.8 (80.0-100.0) fL MCH 27.6 (25.0-34.0) pg MCHC 32.9 (32.0-36.0) g/dL RDW Std Deviation 40.8 (36.4-46.3) fL RDW Coeff of Shanae 13.4 (11.5-14.5) % Plt Count 324 (130-400) K/uL MPV 9.4 (9.4-12.4) fL Immature Gran % (Auto) 0.7 % Neut % (Auto) 81.5 % Lymph % (Auto) 7.5 % [place] % (Auto) 8.6 % Eos % (Auto) 1.2 % Baso % (Auto) 0.5 % Neut # (Auto) 12.64 H (1.40-6.50) K/uL Lymph # (Auto) 1.16 L (1.2-3.4) K/uL [place] # (Auto) 1.33 H (0.11-0.59) K/uL Eos # (Auto) 0.19 (0-0.50) K/uL Baso # (Auto) 0.07 (0-0.2) K/uL Immature Gran # (Auto) 0.11 (0.01-0.20) K/uL Sodium 136 (136-145) mmol/L Potassium 4.2 (3.5-5.1) mmol/L Chloride 102 (98-107) mmol/L Carbon Dioxide 28 (21-32) mmol/L Anion Gap 6 (3-11) BUN 11 (6-23) mg/dl Creatinine 0.48 L (0.6-1.2) mg/dl Est Cr Clr Drug Dosing 108.9 ml/min Est GFR ( Amer) 114.4 ml/min Est GFR (Non-Af Amer) 98.7 ml/min BUN/Creatinine Ratio 22.9 H (10-20) Glucose 135 H (70-99(Fasting)) mg/dl Calcium 8.5 L (8.6-10.3) mg/dl Magnesium 1.6 L (1.7-2.4) mg/dl (1) Morenita-prosthetic fracture around prosthetic hip Encounter type: initial encounter Qualified Code(s): M97.8XXA - Periprosthetic fracture around other internal prosthetic joint, initial encounter; Z96.649 - Presence of unspecified artificial hip joint
[2022-09-30] MEDS: MAGNESIUM SULFATE / D5W 1 GM/100 ML BAG IV SCH ×2 (17:16→19:34)
[2022-09-30] MEDS: DOCUSATE SODIUM/SENNA 50/8.6MG TAB PO SCH (20:05)
[2022-09-30] MEDS: ATORVASTATIN 20 MG TAB PO SCH (20:05)
[2022-10-01] MEDS: oxyCODONE HCL IR 5 MG TAB (IMMEDIATE RELEASE) PO PRN ×3 (00:52→21:55)
[2022-10-01 06:55] LABS: Hemoglobin 8.3 g/dl (12.0-16.0); Mean Corpuscular Hemoglobin 27.9 pg (25.0-34.0); Mean Corpuscular Hgb Conc 33.2 g/dL (32.0-36.0); Mean Corpuscular Volume 83.9 fL (80.0-100.0); Mean Platelet Volume 9.6 fL (9.4-12.4); Platelet Count 279 K/uL (130-400); RDW Coefficient of Variation 13.4 % (11.5-14.5); RDW Standard Deviation 40.8 fL (36.4-46.3); Red Blood Count 2.98 M/uL (4.20-5.40); White Blood Count 12.72 K/ul (4.8-10.8)
[2022-10-01 07:07] LABS: Calcium 8.5 mg/dl (8.6-10.3); Creatinine Clr Calc Pharmacy 108.9 ml/min; Est GFR (African American) 114.4 ml/min; Est GFR (Non-African American) 98.7 ml/min; Magnesium 1.9 mg/dl (1.7-2.4); Potassium 4.3 mmol/L (3.5-5.1)
[2022-10-01] MEDS: ACETAMINOPHEN 500 MG TAB PO SCH ×3 (07:21→19:27)
[2022-10-01] MEDS: DOXYCYCLINE HYCLATE 100 MG CAP PO SCH ×2 (09:48→19:26)
[2022-10-01] MEDS: ASPIRIN 81 MG ECTAB PO SCH ×2 (09:48→19:26)
[2022-10-01 16:12] LABS: Appearance Urine Clear (Clear); Bilirubin Urine Negative (Negative); Blood Urine Negative (Negative); Color Urine Yellow; Glucose Urine UA Negative (Negative); Ketones Urine Negative (Negative); Leukocyte Esterase Urine Negative (Negative); Nitrite Urine Negative (Negative); Protein Urine Negative (Negative); Urobilinogen Urine Negative (Negative)
[2022-10-01] MEDS: ATORVASTATIN 20 MG TAB PO SCH (19:25)
[2022-10-01] MEDS: DOCUSATE SODIUM/SENNA 50/8.6MG TAB PO SCH (19:26)
--- NOTE | 2022-10-01 22:51 | Hospitalist Progress Note ---
Date of Service October 01, 2022 Assessment & Plan (1) Jason-prosthetic fracture around prosthetic hip: Plan: Recent hip repair with Dr Mahajan on 09/20 and was discharged home with home health and sustained periprosthetic fracture of the LEFT hip Orthopedics consulted POD#1 s/p p Open Reduction and Internal Fixation Left Hip Periprosthetic Fracture - Andrei Juarez, DO EBL 150cc Hgb dropped from 11.1--> 9.7 prior to surgery, suspect some bleeding from jason-prosthetic fracture on aspirin for DVT prophyalxis as well as some aspect of dilution as has been on IVF since admission Repeat hgb drop to 8.5 on continuous fluids, not unexpected. No CP/SOB reported, VSS WBC elevation likely from stress of surgery/steroids, patient remains afebrile Pain control/antiemetics as needed Added PO Oxycodone 1-2 tablets as needed, morphine available for breakthrough Bowel regimen (last BM reported yesterday morning, 09/28 prior to incident) DVT proph: ASA 81mg BID Monitor labs on repeat, PT/OT evals. Likely will need some degree of rehab as discussed with patient but she is hopeful for return home when able Will follow up on BMP once resulted-- still pending. UOP acceptable New onset fever Unknown cause. getting urine sample, blood cultures. informed ortho. will monitor WBC, trend temperature, hold off antibiotics, except for doxycycline. Patient reports she did have fevers prior to this sugrery and there was concern she may have a tick borne illness. (2) Lyme disease: Plan: Finish course of doxycycline previously prescribed for rash on leg, finish date 09/29 (3) Hypercholesterolemia: Plan: Continue atorvastatin Plan continued inpatient stay, pain control/bowel regimen monitor labs on repeat PT/OT consults pending Admission and Anticipated Discharge Date Admission Date: September 28, 2022 Subjective 72 yo female reports feeling well but has noticed her temperature has been rising. Patient though denies any dysuria, new cough, nausea, vomiting, general malaisea. She does state her affected knee is swollen. Review of Systems Review of Systems: All systems reviewed & are unremarkable except as noted in HPI & below Physical Exam Physical Exam: General WD/WN female sitting up in chair HEENT; head normocephalic, atraumatic, mm improved, trachea midline Resp: CTA, slightly diminished int he bases, no w/c, on room air CV: regular rate/rhythm, no significant m/r/g, trace pedal edema, calves nontender, pulses palpable GI: +BS, slight distension but soft/NT : pettit draining yellow urine, to be removed this morning MSK/Neuro: left knee is swollen, no erythema, slightly warm to touch, non tender Psych: alert/oriented to person/place/time, cooperative with exam Results & Data Results & Data Vital Signs (Past 12 Hours) Vital Signs Temp Pulse Resp BP Pulse Ox O2 Del Method 10/01/22 20:09 37.6 C H 88 18 114/75 97 Room Air 10/01/22 14:31 37.1 C 92 H 16 145/68 H 95 Room Air PG Care Time/CCT Total # of Minutes Spent Total Time Spent with Patient: Total time spent is greater than 50% in coordination of care (as documented) at patient's floor/unit and/or counseling patient: Coding Level of Care Code 68034 SUB INP/OBS CARE 3/50MIN Diagnoses Jason-prosthetic fracture around prosthetic hip M97.8XXA; Z96.649 Encounter type: initial encounter Lyme disease A69.20 Hypercholesterolemia E78.00 Time Spent (min) 50 (1) Jason-prosthetic fracture around prosthetic hip Encounter type: initial encounter Qualified Code(s): M97.8XXA - Periprosthetic fracture around other internal prosthetic joint, initial encounter; Z96.649 - Presence of unspecified artificial hip joint
[2022-10-02] MEDS: oxyCODONE HCL IR 5 MG TAB (IMMEDIATE RELEASE) PO PRN ×2 (06:21→10:24)
[2022-10-02 07:46] LABS: Basophils # (auto) 0.08 K/uL (0-0.2); Basophils % (auto) 0.7 %; Eosinophils # (auto) 0.51 K/uL (0-0.50); Eosinophils % (auto) 4.2 %; Hematocrit (blood only) 24.5 % (37.0-47.0); Hemoglobin 8.1 g/dl (12.0-16.0); Immature Granulocytes % (auto) 0.8 %; Lymphocytes # (auto) 2.04 K/uL (1.2-3.4); Lymphocytes % (auto) 16.8 %; Mean Corpuscular Hemoglobin 27.7 pg (25.0-34.0); Mean Corpuscular Hgb Conc 33.1 g/dL (32.0-36.0); Mean Corpuscular Volume 83.9 fL (80.0-100.0); Mean Platelet Volume 9.7 fL (9.4-12.4); Monocytes % (auto) 8.2 %; Neutrophils # (auto) 8.44 K/uL (1.40-6.50); Neutrophils % (auto) 69.3 %; Platelet Count 335 K/uL (130-400); RDW Coefficient of Variation 13.7 % (11.5-14.5); RDW Standard Deviation 41.8 fL (36.4-46.3); Red Blood Count 2.92 M/uL (4.20-5.40); White Blood Count 12.17 K/ul (4.8-10.8)
[2022-10-02 08:11] LABS: BUN Creatinine Ratio 19.6 (10-20); C Reactive Protein 10.92 mg/dl (0-0.5); Calcium 8.5 mg/dl (8.6-10.3); Creatinine Clr Calc Pharmacy 113.6 ml/min; Est GFR (Non-African American) 100.1 ml/min; Potassium 3.9 mmol/L (3.5-5.1)
[2022-10-02] MEDS: DOXYCYCLINE HYCLATE 100 MG CAP PO SCH (09:22)
[2022-10-02] MEDS: ACETAMINOPHEN 500 MG TAB PO SCH ×2 (09:22→14:00)
[2022-10-02] MEDS: ASPIRIN 81 MG ECTAB PO SCH (09:22)
--- NOTE | 2022-10-02 15:37 | Discharge Summary ---
Date of Service October 02, 2022 Admission HPI Per Admitting Provider Lolita Ordoñez is a 72 year old female who presents to the ER with left hip pain. She recently underwent a left total hip arthroplasty performed by Dr Edward on September 20, 2022. She reports progressively wosening pain since the operation. She was discharged home the following day post operatively. She reports celebrex caused diarrhea so she had to come off this which definitely made the pain worse. However today with physical therapy while walking down steps she noticed her leg gave out to the left slightly but she was able to complete her PT session. Around 10:15am today she went to sit down and on the way down e verything suddenly shifted to the left and she had excruciating pain in her left hip. Severity 20/10 initially, currently 0/10 as long as she doesn't move. She denies any chest pain, shortness of breath or dizziness prior to sitting down. She has known osteoporosis (notably in her back rather than her hips) which had been improving on Fosamax and she was subsequently taken off this earlier this year. She denies any history of heart attacks, strokes or exertional chest pain. Discharge Exam General WD/WN female sitting up in chair HEENT; head normocephalic, atraumatic, mm improved, trachea midline Resp: CTA, slightly diminished int he bases, no w/c, on room air CV: regular rate/rhythm, no significant m/r/g, trace pedal edema, calves nont samuel, pulses palpable GI: +BS, slight distension but soft/NT : pettit draining yellow urine, to be removed this morning MSK/Neuro: left knee is swollen, no erythema, slightly warm to touch, non tender Psych: alert/oriented to person/place/time, cooperative with exam Discharge Data Allergies Allergy/AdvReac Type Severity Reaction Status Date / Time erythromycin base Allergy Intermediate Hives Verified 09/20/22 08:44 omeprazole [From Prilosec] AdvReac Intermediate Vomiting Verified 09/20/22 08:44 penicillin G AdvReac Mild ? GI Verified 09/20/22 08:44 symptoms Consultations 09/28/22 15:07 Consult Orthopedic Surgery Routine 09/28/22 15:19 Consult Orthopedic Surgery Routine Procedures Performed Operation Date: 09/29/22 07:30 Actual Procedures p Open Reduction and Internal Fixation Left Hip Periprosthetic Fracture - Andrei R. Larry, DO Hospital Course (1) Morenita-prosthetic fracture around prosthetic hip: Age-related osteoporosis w current pathologic fracture, left hip Recent hip repair with Dr Mahajan on 09/20 and was discharged home with home health and sustained periprosthetic fracture of the LEFT hip Orthopedics consulted POD#1 s/p p Open Reduction and Internal Fixation Left Hip Periprosthetic Fracture - Andrei Juarez, DO EBL 150cc Hgb dropped from 11.1--> 9.7 prior to surgery, suspect some bleeding from morenita- prosthetic fracture on aspirin for DVT prophyalxis as well as some aspect of dilution as has been on IVF since admission Repeat hgb drop to 8.5 on continuous fluids, not unexpected. No CP/SOB reported, VSS WBC elevation likely from stress of surgery/steroids, patient remains afebrile Pain control/antiemetics as needed Added PO Oxycodone 1-2 tablets as needed, morphine available for breakthrough Bowel regimen (last BM reported yesterday morning, 09/28 prior to incident) DVT proph: ASA 81mg BID Monitor labs on repeat, PT/OT evals. Likely will need some degree of rehab as discussed with patient but she is hopeful for return home when able Will follow up on BMP once resulted-- still pending. UOP acceptable New onset fever Unknown cause. getting urine sample, blood cultures. informed ortho. will monitor WBC, trend temperature, hold off antibiotics, except for doxycycline. Patient reports she did have fevers prior to this sugrery and there was concern she may have a tick borne illness. Acute blood loss anemia Initial Hgb 11.1, post op 8.1 as of 10/02/22. EBL 150 cc with additional 130 cc hemovac drain. Also noted surgeon documentation of "fracture hematoma" Treatment: monitor CBC's, monitor hemovac drainage will monitor (2) Lyme disease: Finish course of doxycycline previously prescribed for rash on leg, finish date 09/29 (3) Hypercholesterolemia: Continue atorvastatin Plan continued inpatient stay, pain control/bowel regimen monitor labs on repeat PT/OT consults pending Discharge Plan Discharge Items Patient Disposition: Home - Home Health Services Reason For Visit: PERIPROSTHETIC HIP FRACTURE Discharge Diagnosis: periprosthetic hip fracture Activity: Resume your previous activity Non-emergency contact: Primary Care Provider Call non-emergency contact if: you have any medication questions Follow-up/Referrals: Leti Lamb MD [Primary Care Provider] - Andrei Juarez DO [Surgeon] - 10/18/22 11:30 am Diet: Regular Addtl Attending Provider Instructions: Pt may follow-up with Dr Juarez ~ 10/18/22 11:30 call [phone] Recommend followup with PCP in 1 week Addtl Molder Feeder Provider Instructions: ACTIVITY RECOMMENDATIONS: SELF CARE INSTRUCTIONS AFTER TOTAL HIP REPLACEMENT Until the incision and soft tissues around your hip have healed, there is a possibility that the hip prosthesis could dislocate. A. Observe the following precautions to prevent dislocation: 1. Don't bend your hip greater than 90 degrees. 2. Avoid crossing your legs or ankles while standing or lying. 3. Sit with your feet placed 6 inches apart. 4. When sitting, keep your knees below your hips. Sit on a firm surface, avoid deep, soft chairs and couches. Use an elevated toilet seat in the bathroom. 5. Don't bend over at the waist. Use a long handled shoehorn and a sock aid to help you put on your shoes and socks. A bobbin dumper can help you pharmacy picking technician objects that are too high or too low to reach. 6. Keep car riding to a minimum for at least one month after surgery. B. Your balance may be shaky for a while. Use crutches or a walker until directed by your doctor. C. Use hand rails when walking on stairs. D. Wear low heeled shoes with non-slip soles. E. Be sure that your floors are free of things that could trip you - throw rugs , electrical cords, small objects. Avoid wet and waxed floors, especially with crutches and canes. F. Try to walk several times a day with rest periods between. G. Continue with all the exercises taught to you in the hospital. Again, make walking a part of your daily routine. H. It is okay to shower if minimal to no drainage from incision. No baths. Do not soak wound. I. Physical Therapy as instructed by your Physician. SPECIAL CARE INSTRUCTIONS: VERY IMPORTANT TO READ AND REVIEW A. You may still be at risk for phlebitis and blood clots. 1. Wear surgical stockings (QUOC hose) for one month, 20 hours daily, after surgery to improve circulation and reduce swelling. 2. Take Aspirin (blood thinning medications), as directed by your doctor. B. We encourage and will assist you in choosing a home-health agency of your choice. Home health nurses and therapists will monitor your temperature, wound healing and progress in exercise and walking. C. You must take antibiotics before having dental work, bladder, bowel and other surgery. Your doctor will provide you with a permanent card to carry describing precautions. D. Call [facility] if you have a temperature of 101 or greater, redness or swelling around the incision, cloudy drainage from incision, or sudden increase in pain in your hip, not relieved by your regular pain medication. E. Please call the office at if you have any concerns or questions about your operation or recovery. FOLLOW UP VISIT: If appointment is not already scheduled: Please call [facility] to make a follow-up appointment for 10-14 days after your surgery at . Pending Studies at Discharge: No Stand-Alone Forms: [facility], Smoking Cessation Medications and DC Order Prescriptions: New sennosides-docusate sodium [Senokot-S] 8.6-50 mg Tablet 2 tab PO HS Qty: 14 0RF polyethylene glycol 3350 [Miralax] 17 gram Powder In Packet 17 g PO DAILY PRN (Reason: constipation) Qty: 14 0RF Continued famotidine [Pepcid] 20 mg tablet 20 mg PO DAILY PRN (Reason: Acid Reflux) ascorbic acid (vitamin C) 500 mg tablet 1 gm PO HS cyanocobalamin (vitamin B-12) 2,000 mcg tablet 2,000 mcg PO HS diazepam 2 mg tablet 1 mg PO BID PRN (Reason: anxiety) Qty: 10 0RF multivitamin Capsule 1 cap PO HS biotin 1 mg Capsule 1 mg PO HS cholecalciferol (vitamin D3) [Vitamin D3] 25 mcg (1,000 unit) capsule 2,000 units PO HS cyclosporine [Restasis] 0.05 % dropperette 1 drp OPB BID atorvastatin [Lipitor] 20 mg tablet 20 mg PO HS acetaminophen [Tylenol Extra Strength] 500 mg Tablet 1,000 mg PO Q8 30 Days Qty: 180 0RF aspirin 81 mg Tablet,Delayed Release (Dr/Ec) 81 mg PO BID 30 Days Qty: 60 0RF oxycodone 5 mg Tablet 5 - 10 mg PO Q4H PRN (Reason: Post op pain control) Qty: 28 0RF diclofenac sodium 75 mg tablet,delayed release (DR/EC) 75 mg PO BID 30 Days Qty: 60 1RF Discontinued doxycycline hyclate 100 mg capsule 100 mg PO BID 10 Days Qty: 20 0RF Rx Instructions: Start Date 09/19/22 - End Date 09/29/22 Discharge Orders: Discharge Order (Routine); Ordered 10/02/22 Ordered By: Srinath Robb Admission Data Admit Date/Time: 09/28/22 15:07 Attending Provider: Srinath Robb Admit Provider: Yon Javier Primary Care Provider: Leti Lamb Other Providers: Andrei Juarez ; [facility] Coding Diagnoses Morenita-prosthetic fracture around prosthetic hip M97.8XXA; Z96.649 Encounter type: initial encounter Lyme disease A69.20 Hypercholesterolemia E78.00
== END 2022-10-02 17:40 | disposition home health service (06) | DRG 467 ==
LOC: ED 11:32 → 3W 15:07 → SUATTDRO 15:07 → 3W 18:38